=== PATIENT | male | born 1975 | race African-American/Black ===

== ENCOUNTER 2025-07-04 20:19 | Emergency (ER) | payer OTHER, SELFPAY ==
[2025-07-04 20:21] VITALS: BP 157/89; PULSE 71; RESP 20; TEMP 36.1; O2SAT 99
--- OUTSIDE RECORDS SUMMARY | 2025-07-04 20:22 | XMS_ITS | Continuity of Care Document ---
Author Organization [facility], [facility] Address [address] [address] Assessment Encounter Date Assessment Date Assessment LastModified by Organization Details LastModified Time 04/12/2025 04/12/2025 Recommends healthy nutrition, including a diet rich in fruits and vegetables, minimizing simple carbohydrates, salt, and saturated fats. Encouraged regular cardiovascular exercise such as walking at least 30 minutes daily, 5 times per week. Not available 04/12/2025 18:00:29 Plan of Treatment Reminders Order Date Submit Date Provider Last Modified By Organization Details Last Modified Time Details Appointments ESTABLISH ED PATIENT 15 2025 05:15P Ranjana Aldana MD Not available Not available Not available Lab HbA1c (hemoglob in A1c), blood 2024 [facility], [address] [place], [address], 04/19/2025 08:15:29 lipid panel, serum 2024 [facility], [address] [place], [address], 04/19/2025 08:15:28 CMP, serum or plasma 2024 [facility], [address] [place], [address], 04/19/2025 08:15:29 PSA, serum or plasma 2024 [facility], [address] [facility], [place], [address], 04/19/2025 08:15:29 microalbu min/creat inine, mass ratio, urine 2024 [facility], [address] [facility], [place], [address], 04/19/2025 08:15:28 Referral podiatris t referral 2024 CLARKE Rowell DPM, [address] [facility], [facility] [address], [place], [address], 04/12/2025 18:15:31 Procedures None recorded. Surgeries None recorded. Imaging None recorded. Medication Orders Nexlizet 180 mg-10 mg tablet [facility]24 [id number], [address], [place], [id number], 04/12/2025 18:09:22 sildenafi l 50 mg tablet 2024 [facility] Not available 04/12/2025 18:08:55 Patient TargetsNo targets recorded. Patient Instructions Encounter Date Encounter Id Patient Instructions Last Modified By Organization Details Last Modified Time 04/12/2025 [id number] heart-healthy diet: care instructions [facility] Not available 04/12/2025 18:08:55 insomnia: care instructions [facility] Not available 04/12/2025 18:08:55 advised to lose weight [email or web address] Not available 04/12/2025 18:08:55 Discussed and explained advance directives such as standard forms to the . Face to face discussion lasted for a duration of ___ minutes. 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 6 high DANIEL L RANGE BASED ON ANAND COL 2 (DCCT /NGSP ): Non-D iabet ic: < 5.7% Pre-D iabet es: 5.7 - 6.4% Diabe tessa: => 6.5% GLYCE ARTEM CONTR OL: < 7.0% Not Available [facility] [address], [place], [address], 03/29/2025 15:26:37 03/28/20 25 03/28/2025 HEMOG LOBIN A1C estimated average glucose 128 Not Available [facility] [address], [place], [address], 03/29/2025 15:26:37 03/28/20 25 03/28/2025 COMPR EHENS PATEL METAB OLIC PANEL sodium 141 mmol/ L 134-14 4 Not Available [facility] [address], [place], [address], 03/29/2025 15:26:37 03/28/20 25 03/28/2025 COMPR EHENS PATEL METAB OLIC PANEL potassium 4.2 mmol/ L 3.5-5. 2 Not Available [facility] [address] [facility], [place], [address], 03/29/2025 15:26:37 03/28/20 25 03/28/2025 COMPR EHENS PATEL METAB OLIC PANEL chloride 103 mmol/ L 98-107 Not Available [facility] [address], [place], [address], 03/29/2025 15:26:37 03/28/20 25 03/28/2025 COMPR EHENS PATEL METAB OLIC PANEL carbon dioxide (co2) 25.0 mmol/ L 18.0-2 9.0 Not Available [facility] [address], [place], [address], 03/29/2025 15:26:37 03/28/20 25 03/28/2025 COMPR EHENS PATEL METAB OLIC PANEL glucose 98 mg/dL 65-99 Daniel l Fasti n - 99 mg/dL Impai red Fasti n - 125 mg/dL Diagn ostic of Diabe tessa: => 126 mg/dL Ameri can Diabe tessa [facility] i[facility] n, 2007 Not Available [facility] [address] [facility] [address], [place], [address], 03/29/2025 15:26:37 03/28/20 25 03/28/2025 COMPR EHENS PATEL METAB OLIC PANEL urea nitrogen (BUN) 15 mg/dL 6-20 Not Available [facility] [address] [facility] [address], [place], [address], 03/29/2025 15:26:37 03/28/20 25 03/28/2025 COMPR EHENS PATEL METAB OLIC PANEL creatinine 1.05 mg/dL 0.76-1 .27 Not Available [facility] [address] [facility] [address], [place], [address], 03/29/2025 15:26:37 03/28/20 25 03/28/2025 COMPR EHENS PATEL METAB OLIC PANEL eGFR 86 mL/mi nute/ 1.73_ m2 >59 MDRD Study Equat ion: The calcu lated GFR is NOT appli cable for pedia tric (< 18 years old) and > 70 year old patie nts and patie nts that are NOT of stead y state . Not Available [facility] [address] [facility] [address], [place], [address], 03/29/2025 15:26:37 03/28/20 25 03/28/2025 COMPR EHENS PATEL METAB OLIC PANEL calcium 9.4 mg/dL 8.7-10 .2 Not Available [facility] [address] [facility] [address], [place], [address], 03/29/2025 15:26:37 03/28/20 25 03/28/2025 COMPR EHENS PATEL METAB OLIC PANEL protein, total 7.1 gm/dL 6.4-8. 3 Not Available [facility] [address], [place], [address], 03/29/2025 15:26:37 03/28/20 25 03/28/2025 COMPR EHENS PATEL METAB OLIC PANEL albumin 4.7 gm/dL 3.5-5. 2 Not Available [facility] [address] [facility] [address], [place], [address], 03/29/2025 15:26:37 03/28/20 25 03/28/2025 COMPR EHENS PATEL METAB OLIC PANEL bilirubin, total 0.40 mg/dL 0.00-1 .20 Not Available [facility] [address] [facility] [address], [place], [address], 03/29/2025 15:26:37 03/28/20 25 03/28/2025 COMPR EHENS PATEL METAB OLIC PANEL alkaline phosphatase (ALP) 54 U/L 39-117 Not Available [facility] [address] [facility] [address], [place], [address], 03/29/2025 15:26:37 03/28/20 25 03/28/2025 COMPR EHENS PATEL METAB OLIC PANEL aspartate aminotransfe rase (AST) 27 U/L 0-40 Not Available [facility] [address] [facility] [address], [place], [address], 03/29/2025 15:26:37 03/28/20 25 03/28/2025 COMPR EHENS PATEL METAB OLIC PANEL alanine aminotransfe rase (ALT) 34 U/L 0-41 Not Available [facility] [address] [facility] [address], [place], [address], 03/29/2025 15:26:37 03/28/20 25 03/28/2025 COMPR EHENS PATEL METAB OLIC PANEL A/G ratio (calculated) 2.0 ratio 1.0-2. 7 Not Available [facility] [address] [facility] [address], [place], [address], 03/29/2025 15:26:37 03/28/20 25 03/28/2025 COMPR EHENS PATEL METAB OLIC PANEL globulin (calculated) 2.4 gm/dL 1.5-3. 8 Not Available [facility] [address] [facility] [address], [place], [address], 03/29/2025 15:26:37 03/28/20 25 03/28/2025 COMPR EHENS PATEL METAB OLIC PANEL BUN/creatini ne ratio (calculated) 14.3 ratio 8.0-20 .0 Not Available [facility] [address] [facility] [address], [place], [address], 03/29/2025 15:26:37 03/28/20 25 03/28/2025 COMPR EHENS PATEL METAB OLIC PANEL serum index hemolysis NORMAL index normal Not Available [facility] [address] [facility] [address], [place], [address], 03/29/2025 15:26:37 03/28/20 25 03/28/2025 LIPID PANEL (CHOL ZACH OL TOTAL , TRIGL YCERI HAN, HDL KRISH STERO L, LDL CHOL. cholesterol, total 250 mg/dL 100-19 9 high Not Available [facility] [address] [facility] [address], [place], [address], 03/29/2025 15:26:38 03/28/20 25 03/28/2025 LIPID PANEL (CHOL ZACH OL TOTAL , TRIGL YCERI HAN, HDL KRISH STERO L, LDL CHOL. HDL cholesterol 48 mg/dL =>40 Not Available [facility] [address] [facility] [address], [place], [address], 03/29/2025 15:26:38 03/28/20 25 03/28/2025 LIPID PANEL (CHOL ZACH OL TOTAL , TRIGL YCERI HAN, HDL KRISH STERO L, LDL CHOL. LDL cholesterol (calculated) 182 mg/dL 0-99 high Not Available [facility] [address] [facility] [address], [place], [address], 03/29/2025 15:26:38 03/28/20 25 03/28/2025 LIPID PANEL (CHOL ZACH OL TOTAL , TRIGL YCERI HAN, HDL KRISH STERO L, LDL CHOL. triglyceride s 98 mg/dL 50-149 Not Available [facility] [address] [facility] [address], [place], [address], 03/29/2025 15:26:38 03/28/20 25 03/28/2025 LIPID PANEL (CHOL ZACH OL TOTAL , TRIGL YCERI HAN, HDL KRISH STERO L, LDL CHOL. chol/HDL ratio (calculated) 5.21 ratio 0.00-5 .00 high Not Available [facility] [address] [facility] [address], [place], [address], 03/29/2025 15:26:38 03/28/20 25 03/28/2025 LIPID PANEL (CHOL ZACH OL TOTAL , TRIGL YCERI HAN, HDL KRISH STERO L, LDL CHOL. VLDL cholesterol (calculated) 20 mg/dL 5-40 Not Available [facility] [address] [facility] [address], [place], [address], 03/29/2025 15:26:38 04/04/20 25 US axill jorden non breas t [facility] [address] [place] [address] Orderi ng Provid er: JEFERSON ALDANA [facility] [place] [address] [facility] [address] [place] [address] Examin ation: US AXILLA RY NON BREAST LT Exam time: 8:05 AM Indica tion: AXILLA RY LYMPHA DENOPA THY. Patien t states his left axilla ry lymph nodes have remain ed promin ent since after the covid booste r shot x 3 yrs ago off and on with some pain in area of axilla . No recent illnes s No recent shots Compar yuko: None Techni que: Graysc yandel and color Dopple r ultras ound left axilla Findin gs: In the left axilla , there is a promin ent visibl e lymph node measur ing 3.5 cm in length and has a cortex measur ing 3.7 mm thickn ess. It has a robust fatty hilum. No vascul ar increa se in the lymph node. Adjace nt smalle r lymph nodes seen. IMPRES RAQUEL: Promin ent, mild reacti ve lymph nodes. Ordere d By: JEFERSON Ratliff onical ly Signed By: Delmar Santacruz MD on 1:49 PM Interp reted By: Delmar Santacruz MD, 1:[address] [facility], [place], [address], 04/12/2025 18:00:36 06/10/20 25 US gd lymph node BX [facility] [place] [address] Orderi ng [facility]id [facility]: [facility] [place] [address] [facility] [address] [place] [address] Examin ation: Ultras ound guided lymph node biopsy . Access ion: [id number] Exam Date/T fran: 7:41 AM Reason For Exam: axilla ry lympha denopa thy Compar yuko: 2024 left axilla ry ultras ound Techni que: Transc utaneo us ultras ound evalua tion of the thyroi d was perfor med for analys is of graysc yandel gayin g charac terist ics and guidan ce for FNA. Findin gs: 3.6 x 3.2 x 0.7 cm renifo rm shaped mass with promin ent fatty hilum in the left axilla noted. Cortex measur es up to 3.8 mm in santiago l thickn ess. Subseq uent images demons trate needle placem ent within the lymph node for biopsy . A final image labele d vision clip is provid ed ====== ====== === IMPRES RAQUEL: ====== ====== ==== 1. Ultras ound perfor med for imagin g guiddana ce of thyroi d biopsy perfor med by Dr. Kearns withou t radiol ogist presen t. ====== ====== ====== ====== ====== ====== ====== = Referr ed By: CORY KEARNS Electr onical ly Signed By: Boogie beatty MD on 025 5:05 PM Interp reted By: Boogie beatty MD, 025 5:03 PM [facility] [address], [address], 06/10/2025 18:20:29 Result Notes None recorded. Problems Name Problem SNOMED Code Status Onset Date Resolution Date Notes Provider Name and Address Organization Details Recorded Time Deep venous thrombosis 833125623 Active 2018 venous doppler 02/11/19 Not Available [facility] 2 11:29:27 Deep venous thrombosis 327335937 Active 2018 Not Available [facility] 2 11:29:27 Pulmonary embolism 29905383 Active 2018 Not Available [facility] 2 11:29:27 Low back pain 864117375 Active 2022 Jeferson Aldana MD [address], [place], [address] , [facility] 3 17:13:51 Problem Notes None recorded. Procedures Surgical History Date Name Laterality Status Provider Name and Address Organization Details Recorded Time 01/14/20 Colonoscopy completed Jeferson Aldana MD [address], [place], [address], [facility] 02/13/2023 11:12:27 Orthopedic Surgery completed Jeferson Aldana MD [address], [place], [address], [facility] 08/10/2018 10:34:35 Imaging Results None recorded. Procedure Notes None recorded. Medical Equipment None Reported. Allergies No known drug allergies Medications Name Sig Start Date Stop Date Status Note LastModified by Organization Details LastModified Time acetamino phen 325 mg tablet TK 2 TS PO Q 4 H PRF MILD TO MODERATE PAIN 01/16 completed Not Available Not Available Not Available sildenafi l 50 mg tablet 1 tab a day as needed only 2024 active Not Available Not Available Not Avai lable aspirin 325 mg tablet 02/01 completed Not Available Not Available Not Available hydrocodo ne 5 mg-acetam inophen 325 mg tablet TAKE 1 TABLET BY MOUTH EVERY 6 HOURS NEEDED FOR PAIN 06/04 completed Not Available Not Available Not Available meloxicam 15 mg tablet active Not Available Not Available Not Available famotidin e 40 mg tablet TAKE 1 TABLET BY MOUTH EVERY 12 HOURS 02/01 completed Not Available Not Available Not Available metronida zole 500 mg tablet TAKE 1 TABLET BY MOUTH EVERY 12 HOURS active Not Available Not Available No t Available amlodipin e 5 mg tablet Take 1 tablet every day by oral route in the evening. 2023 active Not Available Not Available Not Avai lable ciproflox acin 500 mg tablet PLEASE SEE ATTACHED FOR DETAILED DIRECTIO NS 06/04 completed Not Available Not Available Not Available tramadol 50 mg tablet TK 1 T PO Q 6 H PRN P 01/16 completed Not Available Not Available Not Available triamtere ne 37.5 mg-hydroc hlorothia zide 25 mg capsule TAKE 1 CAPSULE BY MOUTH EVERY DAY 2024 active Not Available Not Available Not Avai lable Nitro-Bid 2 % transderm al ointment 02/01 completed Not Available Not Available Not Available oxycodone -acetamin ophen 5 mg-325 mg tablet TK 1 OR 2 TS PO Q 4 H PRN P 01/16 completed Not Available Not Available Not Available famotidin e 20 mg tablet 05/04 completed Not Available Not Available Not Available dicyclomi ne 20 mg tablet 05/04 completed Not Available Not Available Not Available baclofen 10 mg tablet 1 pill once, up to 3 times a day as needed; can cause drowsine ss 06/04 completed Not Available Not Available Not Available omeprazol e 20 mg capsule,d elayed release 1 tab BID 2024 active Not Available Not Available Not Avai lable ibuprofen 600 mg tablet 05/13 completed -- pt counsele d to avoid all NSAIDs as he is on Xarelto Not Available Not Available Not Available methylpre dnisolone 4 mg tablets in a dose pack UD 06/04 completed Not Available Not Available Not Available diazepam 5 mg tablet TK 1 T PO Q 6 H PRN ANXIETY 01/16 completed Not Available Not Available Not Available Xarelto 15 mg tablet Take 1 tablet every 12 hours by oral route. 05/13 completed --duplic ate Not Available Not Available Not Available Xarelto 20 mg tablet Take 1 tablet every day by oral route for 30 days. 02/23 completed Not Available Not Available Not Available Xarelto DVT-PE Treatment 30-Day Starter 15 mg(42)-20 mg(9) tablet pack ud 10/30 completed -- on 20 mg now Not Available Not Available Not Available Fluvirin 1580-6313 45 mcg (15 mcg x 3)/0.5 mL intramusc ular suspensio n 05/04 completed Not Available Not Available Not Available Flucelvax Quad (PF) 60 mcg (15 mcg x 4)/0.5 mL IM syringe ADM 0.5ML IM UTD 01/16 completed Not Available Not Available Not Available Nexlizet 180 mg-10 mg tablet Take 1 tablet every day by oral route for 90 days. 2024 active Not Available Not Available Not Avai lable Vitals Date Recorded Body height Heart rate Respiratory rate Body temperature Body mass index (BMI) Body weight Systolic And Diastolic Provider Name and Address Organization Details Last Updated DateTime 5 172.72 cm 80 /min 16 /min 95.7 [degF] 31.9 kg/m2 32544.4 g 131/84 mm[Hg] Jeny Gaspar [facility] 16:48:17 Social History Question Answer Notes LastModified by Organizat ion Details LastModified Time Tobacco Smoking Status Former Smoker GREG CARMONA bianca, [facility] 10/08/2016 15:00:17 What Is Your Level Of Caffeine Consumption? None Information not available 08/13/2022 How Much Tobacco Do You Chew? None Information not available 10/08/2016 What Is Your Code Status? Full Code Information not available 11/07/2020 In The 14 Days Before Symptom Onset, Have You Had Close Contact With A Laboratory-confir med COVID-19 While That Case Was Ill? No Information not available 11/07/2020 In The 14 Days Before Symptom Onset, Have You Had Close Contact With A Person Who Is Under Investigation For COVID-19 While That Person Was Ill? No Information not available 11/07/2020 Have You Been To An Area Known To Be High Risk For COVID-19? No Pt Has Been For Covid In The Past Month Information not available 11/07/2020 What Type Of Diet Are You Following? REGULAR Information not available 11/07/2020 Which Illicit Or Recreational Drugs Have You Used? None Information not available 10/08/2016 Marital Status arthur Informbulmaro n not available 08/13/2022 What Was The Date Of Your Most Recent Tobacco Screening? 04/12/2025 Information not available 04/12/2025 At What Age Did You Start Smoking Tobacco? 14 Information not available 10/08/2016 How Much Tobacco Do You Smoke? 2 PPD X 2 Months Information not available 10/08/2016 How Many Years Have You Smoked Tobacco? 0 Information not available 11/07/2020 Sex: Unknown Functional Status Question Answer Note LastModified by Organizat ion Details LastModified Time What is your level of alcohol consumption? 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 Heavy Information not available 11/07/2020 Mental Status None recorded. Family History Relationship Description Onset Age of this Age Resolved Age Notes LastModified by Organization Details LastModified Time Father Lupus erythematosu s -- pt is not sure Not available 10/08/2016 15:46:49 Maternal Uncle Malignant neoplasm of prostate 67 70 -- dx'd around his late 60s Not available 09/05/2024 19:32:47 Notes:Patient denies any FH for diabetes, Heart disease, or cancers in the family Medical History No medical history recorded. Immunizations Vaccine Type Date Status Note Provider Nam e and Address Organization Details Recorded Time Tdap 9 completed Ratna valenzuela, [facility] 02/21/2019 13:43:27 Influenza, split virus, quadrivalent, preservative 9 completed Zachery valenzuela, [facility] 11/07/2020 17:00:01 Influenza, split virus, quadrivalent, preservative 7 completed Zachery valenzuela, [facility] 11/07/2020 17:00:01 Hep A, adult 6 completed Zachery valenzuela, [facility] 11/07/2020 17:00:01 Hep B, unspecified formulation 6 completed Zachery Valiente [facility] 11/07/2020 17:00:01 Past Encounters Encounter ID Performer Location Encounter Start Date Encounter Closed Date Diagnosis/Indication Diagnosis SNOMED-CT Code Diagnosis ICD10 Code Diagnosis IMO Codes Diagnosis Note [id number] Jeferson Aldana MD [facility], [facility] [address] ,[address] [address] 03/13/2025 18:17:18 03/13/2025 19:43:15 Essential hypertension 19471280 I10 -- will need to keep BP controlled ; need to restrict daily Sodium intake to between 1-2 grams of Sodium intake per 24 hours-- examples of salty foods include: smoked salmon, canned green beans, chicken noodle soups, TV dinners, salted nuts, chips, kraus, Pepperoni, Parmesan cheese, Ramen noodles, Sauerkraut , dill pickles, canned tomato sauce, etc.-- EKG done 09/05/24 Hyperlipidemia 59004564 E78.5 Hyperlipid emia; pt will need to:-- avoid Cheese (cheese on burgers, Pizza, lasagna, Dada, Parmesan), -- you will also need to limit egg yolks to 2 yolks a week (but as many egg whites he wants).-- Avoid Kraus,-- trim off fatty rubbery meat before consuming, -- avoid butter & Margarine, -- No whole milk or 2% milk (but 1%, 1/2% & fat free milk is fine). Hyperglycemia 99625379 R 73.9 (glucose of 105 on 05/11/24) Gastroesop hageal reflux disease without esophagitis 667834527 K21.9 -- asymptomat ic as long as he takes Omeprazole Low back pain 267295113 M54.51 (R>>L lower flank) -- per pt on 04/18/24, he underwent procedure by Spine surgeon Dr Dominic Cruz (Fax # [phone])-- had cage placed on L5-S1 via anterior approach done 08/20/22 and doing well without pain since surgery History of deep vein thrombosis 084987296 Z86.718 (twice) once after meniscus surgery on 08/17/18, & second time after ACL reconstruc tion on 01/26/19 w/ LLE DVT going to his Rt lung) -- both times after left knee surgery Chronic insomnia 6991214 04 F51.04 Recommende d dose for Melatonin is 3 mg. Higher doses have been associated w/ headaches and mood swings. Here are some recommenda tions: 1. Make sure your bedroom is quiet, dark, relaxing, and at a comfortabl e temperatur e.2. No electronic devices, such as TVs, computers, and smart phones 4 hours prior to bedtime. However, if this is not possible then use eye glasses with blue light filter (when using the above electronic devices).3 . Avoid large meals, caffeine, and alcohol before bedtime. Alcohol helps individual fall asleep but sleep will be fragmented & prevents prolonged deep sleep.4. 30-40 minutes of morning Exercise has been shown to help regulate brain wave in the evening. However, if unable to exercise in AM (due to schedule), must not exercise after 4 pm.5. Bed is primarily for sleeping. If unable to sleep --> will need to get out of bed and sit in a dark quiet corner for 20 to 30 min (without electronic devices); then re-attempt sleeping in bed again. Primary er ectile dysfunction 904737857 N52.9 Many patients found that Viagra can help a lot. Its generic version is called Sildenafil . Viagra (Sildenafi l) most common side effects are transient headaches and transient nasal congestion . Almost everyone on it experience the side effects periodical ly. For optimal efficacy, the best time to take Viagra is 2 hr prior to intimacy. Here are some additional warnings on Viagra (Sildenafi l):--- Do not take sildenafil if another medical provider issued you a nitrate drug (like nitroglyce rin) for chest pain or heart problems. Other examples of nitroglyce rin include Nitrostat, Nitrolingu al, Nitro-Dur, Nitro-Bid, and others), isosorbide dinitrate (Dilatrate -SR, Isordil, Sorbitrate ), and isosorbide mononitrat e (Imdur, ISMO, Monoket). Nitrates are also found in some recreation al drugs such as amyl nitrate or nitrite (poppers ). Taking sildenafil with a nitrate medicine can cause a sudden unsafe and serious decrease in blood pressure. -- During sexual activity, if you become dizzy or nauseated, or have pain, numbness, or tingling in your chest, arms, neck, or jaw, stop and call your doctor right away. You could be having a serious side effect of sildenafil . -- Do not take sildenafil more than once a day. Allow 24 hours to pass between doses. Do not take sildenafil while also taking Revatio, unless your doctor tells you to. -- Contact your doctor or seek emergency medical attention if your erection is painful or lasts longer than 4 hours. A prolonged erection (priapism) can damage the penis. -- sildenafil can decrease blood flow to the optic nerve of the eye, causing sudden vision loss. This has occurred in a small number of people taking sildenafil , most of whom also had heart disease, diabetes, high blood pressure, high cholestero l, or certain pre-existi ng eye problems, and in those who smoke or are over 50 years old. It is not clear whether sildenafil is the actual cause of vision loss. -- Stop using sildenafil and get emergency medical help if you have sudden vision loss. Hepatitis C screening 41 3424371 Z11.59 -- tested negative for Hepatitis C on 06/10/22 HIV screening 802941851 Z11.4 -- tested negative for HIV on 05/11/24 Active or passive immunization 127574282 Z23 -- Patient does not want Flu shot Screening for malignant neoplasm of colon 125357764 Z12.11 -- gastroente rologist Dr Svetlana Degroot recommends repeating colonoscop y 5 years from 01/13/23 Obesity ca used by energy imbalance 044563747 E66.811 E66.09 Z68.32 [id number] -- advised weight loss; pt lost 4 # since his last visit-- pt's BMI today is 32.4 (ideal is between 20-25) Axillary lymphadenopathy 178038455 R59.0 981892 (left side since covid vaccine 2020) Screening for malignant neoplasm of prostate 834834771 Z12.5 [id number] [id number] Jeferson Aldana MD [place] [employer], [place] [address] [facility] ,[address] [address] 04/12/2025 16:40:40 04/12/2025 18:10:14 Axillary lymphadenopathy 521705351 R59.0 200909 (left side since covid vaccine 2020) -- Axillary LN evident on u/s on 04/04/25-- referred pt to [facility] for further evaluation . Essential hypertension 61958914 I10 -- will need to keep BP controlled ; need to restrict daily Sodium intake to between 1-2 grams of Sodium intake per 24 hours-- examples of salty foods include: smoked salmon, canned green beans, chicken noodle soups, TV dinners, salted nuts, chips, kraus, Pepperoni, Parmesan cheese, Ramen noodles, Sauerkraut , dill pickles, canned tomato sauce, etc.-- EKG done 09/05/24 Hyperlipidemia 74506346 E78.5 Hyperlipid emia; pt will need to:-- avoid Cheese (cheese on burgers, Pizza, lasagna, Dada, Parmesan), -- you will also need to limit egg yolks to 2 yolks a week (but as many egg whites he wants).-- Avoid Kraus,-- trim off fatty rubbery meat before consuming, -- avoid butter & Margarine, -- No whole milk or 2% milk (but 1%, 1/2% & fat free milk is fine).-- pt does not want to be on any statin med; Gastroesop hageal reflux disease without esophagitis 435562859 K21.9 -- asymptomat ic even though he is no longer on Omeprazole Low back pain 938282488 M54.51 (R>>L lower flank) -- per pt on 04/18/24, he underwent procedure by Spine surgeon Dr Dominic Cruz [phone] (Fax # [phone])-- had cage placed on L5-S1 via anterior approach done 08/20/22 and doing well without pain since surgery History of deep vein thrombosis 925383825 Z86.718 (twice) once after meniscus surgery on 08/17/18, & second time after ACL reconstruc tion on 01/26/19 w/ LLE DVT going to his Rt lung) -- both times after left knee surgery Chronic insomnia 6342527 04 F51.04 Recommende d dose for Melatonin is 3 mg. Higher doses have been associated w/ headaches and mood swings. Here are some recommenda tions: 1. Make sure your bedroom is quiet, dark, relaxing, and at a comfortabl e temperatur e.2. No electronic devices, such as TVs, computers, and smart phones 4 hours prior to bedtime. However, if this is not possible then use eye glasses with blue light filter (when using the above electronic devices).3 . Avoid large meals, caffeine, and alcohol before bedtime. Alcohol helps individual fall asleep but sleep will be fragmented & prevents prolonged deep sleep.4. 30-40 minutes of morning Exercise has been shown to help regulate brain wave in the evening. However, if unable to exercise in AM (due to schedule), must not exercise after 4 pm.5. Bed is primarily for sleeping. If unable to sleep --> will need to get out of bed and sit in a dark quiet corner for 20 to 30 min (without electronic devices); then re-attempt sleeping in bed again. Primary er ectile dysfunction 696874996 N52.9 Many patients found that Viagra can help a lot. Its generic version is called Sildenafil . Viagra (Sildenafi l) most common side effects are transient headaches and transient nasal congestion . Almost everyone on it experience the side effects periodical ly. For optimal efficacy, the best time to take Viagra is 2 hr prior to intimacy. Here are some additional warnings on Viagra (Sildenafi l):--- Do not take sildenafil if another medical provider issued you a nitrate drug (like nitroglyce rin) for chest pain or heart problems. Other examples of nitroglyce rin include Nitrostat, Nitrolingu al, Nitro-Dur, Nitro-Bid, and others), isosorbide dinitrate (Dilatrate -SR, Isordil, Sorbitrate ), and isosorbide mononitrat e (Imdur, ISMO, Monoket). Nitrates are also found in some recreation al drugs such as amyl nitrate or nitrite (poppers ). Taking sildenafil with a nitrate medicine can cause a sudden unsafe and serious decrease in blood pressure. -- During sexual activity, if you become dizzy or nauseated, or have pain, numbness, or tingling in your chest, arms, neck, or jaw, stop and call your doctor right away. You could be having a serious side effect of sildenafil . -- Do not take sildenafil more than once a day. Allow 24 hours to pass between doses. Do not take sildenafil while also taking Revatio, unless your doctor tells you to. -- Contact your doctor or seek emergency medical attention if your erection is painful or lasts longer than 4 hours. A prolonged erection (priapism) can damage the penis. -- sildenafil can decrease blood flow to the optic nerve of the eye, causing sudden vision loss. This has occurred in a small number of people taking sildenafil , most of whom also had heart disease, diabetes, high blood pressure, high cholestero l, or certain pre-existi ng eye problems, and in those who smoke or are over 50 years old. It is not clear whether sildenafil is the actual cause of vision loss. -- Stop using sildenafil and get emergency medical help if you have sudden vision loss. Obesity ca used by energy imbalance 875912359 E66.811 E66.09 Z68.31 38888334 -- advised weight loss; pt lost 3 # since his last visit-- pt's BMI today is 3.9 (ideal is between 20-25) Hepatitis C screening 41 9866632 Z11.59 -- tested negative for Hepatitis C on 06/10/22 HIV screening 481236652 Z11.4 -- tested negative for HIV on 05/11/24 Active or passive immunization 467462398 Z23 -- Patient does not want Flu shot Screening for malignant neoplasm of colon 170380871 Z12.11 -- gastroente rologist Dr Svetlana Degroot recommends repeating colonoscop y 5 years from 01/13/23 Screening for malignant neoplasm of prostate 550903167 Z12.5 538611 -- check lab within 3 weeks from 04/12/25 Well adult 054486463 Z00 .00 48011869 Pain in right foot 26666 18136 71620 M79.671 428979 (h/o plantar fascitis and right heel spur) Impaired g lucose tolerance 7182179 R73.02 09460 -- A1c f 6.1 (03/28/25) Health Concerns Section Related Observation LastModified by Organization Detai ls LastModified Time None Recorded Concern Status LastModified by Organization Details LastModified Time None Recorded Payers Encounter Date Sequence Insurance Name Policy Number Policy Fountain Covered Member ID Fountain Member ID Guarantor Name 04/12/2025 1 [facility] [id number] Aman Brooke [id number] Aman Brooke Notes Date Note Type Note Provider Name and Address Organization Details Recorded Time 04/12/2025 text/html Pt comes in for stress and foot pain requesting [place] paperwork. Pt is also due for his annual PE and f/u of HLD, pre-DM. Pt feels well and has no c/o. Pt has no new sx and no increasing sx. Patient denies any jaw or neck discomfort, left arm pain/left arm discomfort, chest discomfort/pain, diaphoresis, breathing symptoms/chest tightness, indigestion sx, n/v, any angina equivalent symptoms, etc. Jeferson Aldana MD [address] [facility] [address], [place], [address], [facility] 04/12/2025 18:10:35
--- OUTSIDE RECORDS SUMMARY | 2025-07-04 20:22 | XMS_ITS | Encounter Summary ---
Author Organization [facility] Address [address] [place] [address] Phone Care Team Providers Care Braker Passenger Train Name Role Phone Mk Esposito MD Primary Care Provider [phone] Encounter Details Date Type Department Care Team (Late st Contact Info) Description 11/12/2020 Telephone [facility] [address] [place] [address] Gary Quispe, [address] [place] [address] Social History Tobacco Use Types Packs/Day Years Used Date Smoking Tobacco: Never Smokeless Tobacco: Never Alcohol Use Standard Drinks/Week Comments Yes 2 (1 standard drink = 0.6 oz pur e alcohol) every 3-4 days AUDIT-C Answer Date Recorded Frequency of Alcohol Consumption 2-3 times a wee jake 03/09/2019 Average Number of Drinks 1 or 2 019 Frequency of Binge Drinking Never 10/2018 PHQ-2 Answer Date Recorded Total Score - Questions 1-9 0 11/03 Sexually Active Control Partners Comments Yes Female Sex and Gender Information Value Date Recorded Sex Assigned at Not on file Legal Sex Male 4:24 PM CDT Gender Identity Not on file Sexual Orientation Not on file documented as of this encounter Miscellaneous Notes * Telephone Encounter - CristalOctober - 11/13/2020 4:17 PM CDT I've changed him from being on your schedule to back to [facility]. * Telephone Encounter - Gary Quispe DO - 11/13/2020 7:12 [address] CDT This is Dr. Caceres patient. Get him back to see him on Thursday or another time that works. * Telephone Encounter - Cristal October - 11/12/2020 4:03 PM CDT Pt forgot about his one year f/u. He is rescheduled for this Thursday. documented in this encounter Plan of Treatment Not on file documented as of this encounter Visit Diagnoses Not on filedocumented in this encounter Additional Health Concerns Assessment Noted Time PHQ-9 Depression Total Score: 0 11/14/19 20 1:32 PM CDT documented as of this encounter Care Teams Braker Passenger Train Relationship Specialty Start Date End Date Mk Esposito MD PCP - General Internal Medicine 02/16/19 documented as of this encounter
--- OUTSIDE RECORDS SUMMARY | 2025-07-04 20:22 | XMS_ITS | Encounter Summary ---
Author Organization [facility] Address Counts include [address] beds at the [facility] [place] [address] Care Team Providers Care Guide Plant Name Role Phone Mk Esposito MD Primary Care Provider [phone] Encounter Details Date Type Department Care Team (Late st Contact Info) Description 12/11/2018 Abstract [facility] CONVERSION [address] [place] [address] , Generic ConversionMD Social History Tobacco Use Types Packs/Day Years Used Date Smoking Tobacco: Never Assessed Sex and Gender Information Value Date Recorded Sex Assigned at Male 03/27/2025 7:57 AM CDT Legal Sex Male 7:00 PM CDT Gender Identity Not on file Sexual Orientation Not on file documented as of this encounter Plan of Treatment Not on file documented as of this encounter Visit Diagnoses Not on filedocumented in this encounter Care Teams Guide Plant Relationship Specialty Start Date End Date Mk Esposito MD [address] [place] [address] PCP - General INTERNAL MEDICINE 05/13/18 documented as of this encounter
--- OUTSIDE RECORDS SUMMARY | 2025-07-04 20:22 | XMS_ITS | Clinical Summary ---
Author Organization [facility] at the Medical Office Building Address [address] [place] [address] Care Team Providers Care Velvet Weaver Name Role Phone Mk Esposito MD Primary Care Provider [phone] Allergies No known active allergies Medications aspirin 325 mg tablet TK 1 T PO D 0 9 Active BOOSTRIX TDAP 2.5-8-5 Lf-mcg-Lf/0.5mL vaccine U UTD Q 10 YEARS 0 9 Active famotidine (PEPCID) 40 mg tablet TK 1 T PO Q 12 H 5 9 Active HYDROcodone-acetam inophen (NORCO) 5-325 mg per tablet TK 1 T PO Q 4 H PRN P 0 9 Active NITRO-BID 2 % ointment 9 Active omeprazole (PriLOSEC) 20 mg capsule TK ONE C PO QD 2 9 Active rivaroxaban (XARELTO) 10 mg tablet 10 mg daily Active ondansetron ODT (ZOFRAN-ODT) 4 mg disintegrating tablet Take 1 tablet (4 mg total) by mouth every 8 (eight) hours as needed for nausea or vomiting 20 tablet 5 Active cyclobenzaprine (FLEXERIL) 10 mg tablet Take 1 tablet (10 mg total) by mouth 2 (two) times a day as needed for muscle spasms 20 tablet 5 Active gabapentin (NEURONTIN) 300 mg capsule Take 1 capsule (300 mg total) by mouth 2 (two) times a day as needed (back pain) for up to 14 days For post-herpetic neuralgia: Take 1 tablet on day 1, Then take 2 tablets on day 2, Then take 3 tablets on day 3 and every day after that as instructed by your doctor. 14 capsule 026 Active Active Problems Problem Noted Date Diagnosed Date Other meniscus derangements, anterior horn of lateral meniscus, left knee 05/19/2018 Acute deep vein thrombosis ( DVT) of distal vein of left lower extremity 05/06/2018 Internal derangement of left knee 05/06/2018 Encounters Date Type Department Care Team Description 06/25/2025 3:59 AM RN ADVICE - 06/25/2025 5:44 AM RN ADVICE Emergency [facility] [address] [place] [address] Marquita Guidry MD Acute right-sided low back pain without sciatica (Primary Dx) Discharge Disposition: Discharge to home or self care from Last 3 Months Immunizations Immunization Administration Dates Next Due Influenza, Quadrivalent, Spl it, Preservative Free, Intramuscular 03/26/2018 Tdap 08/11/2018 Surgical History Surgery Date Site/Laterality Comments KNEE ARTHROSCOPY US GUIDED BIOPSY LYMPH NODE SUPERFICIAL LEFT 06/09/2025 N/A Medical History Medical History Date Comments Deep vein thrombosis (HCC) Family History Medical History Relation Name Comments Hypertension Mother Relation Name Status Comments Father Alive Mother Alive Social History Tobacco Use Types Packs/Day Years Used Date Smoking Tobacco: Never Smokeless Tobacco: Never Alcohol Use Standard Drinks/Week Comments Yes 0 (1 standard drink = 0.6 oz pur e alcohol) AUDIT-C Answer Date Recorded Frequency of Alcohol Consumption Monthly or less 10/06/2018 Average Number of Drinks Not on file 019 Frequency of Binge Drinking Not on file 09/2018 Personal Safety Answer Date Recorded Have you ever been in or are you currently in a harmful physical or emotional relationship or is someone making you feel afraid or unsafe? Denies 06/25/2025 Sex and Gender Information Value Date Recorded Sex Assigned at Not on file Legal Sex Male 3:59 AM RN ADVICE Gender Identity Not on file Sexual Orientation Not on file Last Filed Vital Signs Vital Sign Reading Time Taken Comments Blood Pressure 117/87 06/25/2025 5:30 AM RN ADVICE Pulse 58 06/25/2025 5:30 AM RN ADVICE Temperature 37.1 C (98.8 F) 06/25/2025 3:57 AM RN ADVICE Respiratory Rate 16 06/25/2025 5:30 AM RN ADVICE Oxygen Saturation 97% 06/25/2025 5:30 AM RN ADVICE Inhaled Oxygen Concentration - - Weight 92.7 kg (204 lb 5.9 oz) 06/25/2025 3:57 A M RN ADVICE Height 172.7 cm (5' 8) 06/25/2025 3:57 AM RN ADVICE Body Mass Index 31.07 06/25/2025 3:57 AM RN ADVICE Plan of Treatment Health Maintenance Due Date Last Done Comments Colon Cancer Screening-Colonoscopy 1974 Depression Screening 1974 Hepatitis C Screening 1974 Prostate Cancer Screening-PSA 1974 Regular Well Visit/Exam 18-64 1992 Zoster Vaccine (1 of 2) 2024 Covid-19 Vaccine ( season) 2025 08/06/2021, 10/31/2020, 10/11/2020 Influenza Vaccine (#1) 2025 9, 04/27/2019, 03/26/2018, Additional history exists DTaP/Tdap/Td Vaccine (8 - Td or Tdap) 08/11/2028 08/11/2018, 03/10/1986, 03/22/1981, Additional history exists Hepatitis B Screening Completed 04/01/2016 , 12/25/2015, 09/10/2015, Additional history exists Pneumococcal vaccine <65 Aged Out No longer eligible based on patient's age to complete this topic Procedures Procedure Name Priority Date/Time Associated Diagnosis Comments CT ABDOMEN PELVIS WO CONTRAST ED 06/25/2025 4:58 AM RN ADVICE URINALYSIS, MICROSCOPIC ONLY STAT 06/25/2025 4:38 AM RN ADVICE EGFR STAT 06/25/2025 4:38 AM RN ADVICE DIFFERENTIAL AUTO STAT 06/25/2025 4:3 8 AM RN ADVICE BASIC METABOLIC PANEL STAT 06/25/2025 4:38 AM RN ADVICE CBC WITH AUTO DIFFERENTIAL STAT 06/25/2025 4:38 AM RN ADVICE URINALYSIS AND REFLEX TO MICROSCOPIC AND CULTURE STAT 06/25/2025 4:38 AM RN ADVICE from Last 3 Months Results * CT Abdomen Pelvis WO Contrast (06/25/2025 4:58 AM RN ADVICE) Anatomical Region Laterality Modality Body N/A Computed Tomogra phy 06/25/2025 5:11 AM RN ADVICE Impressions 06/25/2025 5:11 AM RN ADVICE No acute abdominopelvic finding, evidence of urinary stone or obstruction. Electronically signed by: Derrick Lynch M.D. Narrative 06/25/2025 5:11 AM RN ADVICE EXAMINATION: CT ABDOMEN PELVIS WO CONTRAST INDICATION: Male, 49 years old, Abdominal/flank pain, stone suspected COMPARISON(S): None. TECHNIQUE: CT acquisition of the abdomen and pelvis without contrast. Coronal and sagittal reformatted images provided. This exam was performed according to departmental dose-optimization program which includes automated exposure control, adjustment of the mA and/or kV according to patient size, and/or use of iterative reconstruction technique. FINDINGS: SUPPORT DEVICES: None. LOWER CHEST: Mild basilar scarring/atelectasis. Imaged heart is unremarkable. ABDOMEN AND PELVIS: Lack of intravenous contrast limits evaluation of the abdominal and pelvic viscera and vascular structures. Liver: Borderline hypoattenuation. Gallbladder and bile ducts: Unremarkable. Pancreas: Unremarkable. Spleen: Unremarkable. Adrenal glands: Unremarkable. Kidneys and ureters: No evidence of stone or obstruction. Bladder: Nondistended without evident abnormality. Reproductive organs: Unremarkable as visualized. GI tract: Normal caliber without wall thickening. Normal appendix. Vessels: Mild atherosclerosis. Lymph nodes: No obvious adenopathy. Peritoneum: No evidence of ascites, fluid collection, or free air. Abdominal wall: Ventral postsurgical change. MUSCULOSKELETAL: No acute osseous abnormality. L5-S1 postsurgical change without evidence of hardware complication. Procedure Note Derrick Lynch MD - 06/25/2025 EXAMINATION: CT ABDOMEN PELVIS WO CONTRAST INDICATION: Male, 49 years old, Abdominal/flank pain, stone suspected COMPARISON(S): None. TECHNIQUE: CT acquisition of the abdomen and pelvis without contrast. Coronal and sagittal reformatted images provided. This exam was performed according to departmental dose-optimization program which includes automated exposure control, adjustment of the mA and/or kV according to patient size, and/or use of iterative reconstruction technique. FINDINGS: SUPPORT DEVICES: None. LOWER CHEST: Mild basilar scarring/atelectasis. Imaged heart is unremarkable. ABDOMEN AND PELVIS: Lack of intravenous contrast limits evaluation of the abdominal and pelvic viscera and vascular structures. Liver: Borderline hypoattenuation. Gallbladder and bile ducts: Unremarkable. Pancreas: Unremarkable. Spleen: Unremarkable. Adrenal glands: Unremarkable. Kidneys and ureters: No evidence of stone or obstruction. Bladder: Nondistended without evident abnormality. Reproductive organs: Unremarkable as visualized. GI tract: Normal caliber without wall thickening. Normal appendix. Vessels: Mild atherosclerosis. Lymph nodes: No obvious adenopathy. Peritoneum: No evidence of ascites, fluid collection, or free air. Abdominal wall: Ventral postsurgical change. MUSCULOSKELETAL: No acute osseous abnormality. L5-S1 postsurgical change without evidence of hardware complication. IMPRESSION: No acute abdominopelvic finding, evidence of urinary stone or obstruction. Electronically signed by: Derrick Lynch M.D. Marquita Guidry MD IMG CT PROCEDURES Final R esult * eGFR (06/25/2025 4:38 AM RN ADVICE) eGFR 90 >=60 mL/min/1. 73 m2 Comment: Interpretive Data Reference Interval Normal >/= 90 mL/min/1.73m2 Mildly decreased* 60 - 89 mL/min/1.73m2 Mildly to moderately decreased 45 - 59 mL/min/1.73m2 Moderately to severely decreased 30 - 44 mL/min/1.73m2 Severely decreased 15 - 29 mL/min/1.73m2 Kidney Failure < 15 mL/min/1.73m2 *Relative to young adult level Estimated glomerular filtration rate is determined by the 2020 CKD-EPI equation recommended by the National Kidney Foundation (A Unifying Approach to GFR Estimation: Recommendations of the NKF-ASK Task Force on Reassessing the Inclusion of Race in Diagnosing Kidney Disease, JASN 2021). The CKD-EPI equation should not be used for patients with unstable renal function and has not been validated in children and those over 70. Current interpretive data was last reviewed 2021. Testing performed by: [address] [address] Blood 06/25/2025 4:38 AM RN ADVICE 06/25/2025 4:50 AM RN ADVICE us Marquita Guidry MD LAB BLOOD ORDERABLES Kenia dorsey Result [facility] [address] [facility] [place] [address] * Differential, auto (06/25/2025 4:38 AM RN ADVICE) Neutrophil abs 1.75 1.50 - 6.50 K/cumm Comment:Testing performed by : [address] [address] Imm gran abs 0.01 0.00 - 0.10 K/cumm REE Comment:Testing performed by : [address] [address] Lymphocyte abs 2.43 0.80 - 3.30 K/cumm REE Comment:Testing performed by : [address] [address] Monocyte abs 0.43 0.20 - 0.80 K/cumm REE Comment:Testing performed by : [address] [address] Eosinophil abs 0.08 0.00 - 0.50 K/cumm REE Comment:Testing performed by : [address] [address] Basophil abs 0.01 0.00 - 0.10 K/cumm REE Comment:Testing performed by : [address] [address] Neutrophil pct 37.2 % REE Comment: Interpretive Data Percent cell count reference ranges are not reported, since discordance with absolute values may lead to misinterpretation of CBC data. Current Interpretive Data was last revised on 2017. Testing performed by: [address] [address] Imm gran pct 0.2 % [facility] Comment: Interpretive Data Percent cell count reference ranges are not reported, since discordance with absolute values may lead to misinterpretation of CBC data. Current Interpretive Data was last revised on 2017. Testing performed by: [address] [address] Lymphocyte pct 51.6 % [facility] Comment: Interpretive Data Percent cell count reference ranges are not reported, since discordance with absolute values may lead to misinterpretation of CBC data. Current Interpretive Data was last revised on 2017. Testing performed by: [address] [address] Monocyte pct 9.1 % [facility] Comment: Interpretive Data Percent cell count reference ranges are not reported, since discordance with absolute values may lead to misinterpretation of CBC data. Current Interpretive Data was last revised on 2017. Testing performed by: [address] [address] Eosinophil pct 1.7 % [facility] Comment: Interpretive Data Percent cell count reference ranges are not reported, since discordance with absolute values may lead to misinterpretation of CBC data. Current Interpretive Data was last revised on 2017. Testing performed by: [address] [address] Basophil pct 0.2 % [facility] Comment: Interpretive Data Percent cell count reference ranges are not reported, since discordance with absolute values may lead to misinterpretation of CBC data. Current Interpretive Data was last revised on 2017. Testing performed by: [address] [address] Blood 06/25/2025 4:38 AM RN ADVICE 06/25/2025 4:50 AM RN ADVICE us Marquita Guidry MD LAB BLOOD ORDERABLES Kenia dorsey Result [facility] [address] [facility] [place] [address] * (ABNORMAL) Urinalysis reflex to microscopic and culture Urine (06/25/2025 4:38 AM RN ADVICE) Color, ur Yellow Yellow Comment:Testing performed by : [address] [address] Clarity, ur Clear Clear REE Comment:Testing performed by : [address] [address] Specific gravity, ur 1.025 1.003 - 1.030 REE Comment:Testing performed by : [address] [address] pH, urine 5.5 REE Comment: Interpretive Data U rine pH is affected by diet, medications, systemic acid-base disturbances, and renal tubular function. pH may affect urinary stone formation. For example, urine pH below 6.0 may help reduce the tendency for calcium phosphate stones and pH greater than 6.0 may reduce the tendency for uric acid stone formation. Source: [facility] Current Interpretive Data was last revised on 2017 Testing performed by: [address] [address] Protein, ur ql Trace(A) Negative REE Comment:Testing performed by : [address] [address] Glucose, ur ql Negative Negative REE Comment:Testing performed by : [address] [address] Ketones, ur Negative Negative REE Comment:Testing performed by : [address] [address] Bilirubin, ur Negative Negative REE Comment:Testing performed by : [address] [address] Blood, ur Negative Negative REE Comment:Testing performed by : [address] [address] Urobilinogen, ur <2.0 <2.0 mg/dL REE Comment:Testing performed by : [address] [address] Nitrite, ur Negative Negative REE Comment:Testing performed by : [address] [place]., [address] Leukocyte esterase, ur Negative Negative REE Comment:Testing performed by : [address] [address] UA reflex comment Reflex to microscopic UA will be performed. REE Comment:Testing performed by : [address] [address] Urine 06/25/2025 4:38 AM RN ADVICE 06/25/2025 4:50 AM RN ADVICE us Marquita Guidry MD LAB MICROBIOLOGY - GENERA L ORDERABLES Final Result [facility] [address] [facility] Department of Laboratories [place], [place] [id number] * (ABNORMAL) CBC with auto differential (06/25/2025 4:38 AM RN ADVICE) WBC 4.71 3.80 - 9.90 K/cumm Comment:Testing performed by : [address] [address] Hgb 13.5 13.0 - 17.5 g/dL REE Comment:Testing performed by : [address] [address] Hct 40.4 38.9 - 50.3 % REE GELLER Comment:Testing performed by : [address] [address] Plt 203 150 - 400 K/cumm REE Comment:Testing performed by : [address] [address] MPV 8.9(L) 9.1 - 12.3 fL REE Comment:Testing performed by : [address] [address] RBC 4.42 4.30 - 5.80 M/cumm REE GELLER Comment:Testing performed by : [address] [address] MCV 91.4 81.3 - 96.4 fL REE GELLER Comment:Testing performed by : [address] [address] MCH 30.5 27.1 - 33.3 pg REE GELLER Comment:Testing performed by : [address] [address] MCHC 33.4 32.3 - 35.7 g/dL REE GELLER Comment:Testing performed by : [address] [address] RDW CV 13.1 11.1 - 14.9 % REE GELLER Comment:Testing performed by : [address] [address] RDW SD 43.6 35.7 - 48.1 fL REE GELLER Comment:Testing performed by : [address] [address] NRBC abs 0.00 0.00 - 0.01 K/cumm REE GELLER Comment:Testing performed by : [address] [address] Blood 06/25/2025 4:38 AM RN ADVICE 06/25/2025 4:50 AM RN ADVICE us Marquita Guidry MD LAB BLOOD ORDERABLES Kenia l Result [facility] [address] [facility] Department [place] [address] * (ABNORMAL) Urinalysis, microscopic only (06/25/2025 4:38 AM RN ADVICE) WBC, ur 0-5 0 - 5 /HPF Comment:Testing performed by : [address] [address] RBC, ur 0-2 0 - 2 /HPF REE GELLER Comment:Testing performed by : [address] [address] Epithelial cells, squamous, ur 1-5 0 - 5 /HPF REE GELLER Comment:Testing performed by : [address] [address] Bacteria, ur Trace(A) REE GELLER Comment:Testing performed by : [address] [address] Mucous, ur Present(A) REE GELLER Comment:Testing performed by : [address] [address] Hyaline casts, ur 1-5 0 - 10 /LPF REE Comment:Testing performed by : [address] [address] Culture Reflex Comment Reflex conditions for urine culture (WBC >10) not met. REE Comment:Testing performed by : [address] [address] Urine 06/25/2025 4:38 AM RN ADVICE 06/25/2025 4:50 AM RN ADVICE us Marquita Guidry MD LAB URINE ORDERABLES Kenia dorsey Result [facility] [address] [facility] [place] [address] * Basic metabolic panel (06/25/2025 4:38 AM RN ADVICE) Sodium 140 135 - 145 mmol/L Comment:Testing performed by : [address] [address] Potassium, pl 3.7 3.3 - 4.9 mmol/L REE Comment:Testing performed by : [address] [address] Chloride 104 97 - 110 mmol/L REE Comment:Testing performed by : [address] [address] CO2 23 22 - 32 mmol/L REE Comment:Testing performed by : [address] [address] Anion gap 13 2 - 15 mmol/L REE Comment:Testing performed by : [address] [address] BUN 15 6 - 25 mg/dL REE Comment:Testing performed by : [address] [address] Creatinine 1.02 0.80 - 1.30 mg/dL REE Comment:Testing performed by : [address] [address] Glucose 90 70 - 199 mg/dL REE GELLER Comment: Interpretive Data Fasting glucose >/= 126 mg/dl is diagnostic for diabetes. Fasting is defined as no caloric intake for at least 8 hours. Fasting glucose between 100 mg/dl to 125 mg/dl is diagnostic of prediabetes. In a patient with classic symptoms of hyperglycemia or hyperglycemic crisis, a random glucose >/= 200 mg/dl is diagnostic for diabetes. In the absence of unequivocal hyperglycemia, results should be confirmed by repeat testing. The classification and Diagnosis of Diabetes Diabetes Care 202; 46: S19-S40. Current interpretive data was last revised 2022. Testing performed by: [address] [address] Calcium 9.4 8.5 - 10.3 mg/dL REE GELLER Comment:Testing performed by : [address] [address] Blood 06/25/2025 4:38 AM RN ADVICE 06/25/2025 4:50 AM RN ADVICE us Marquita Guidry MD LAB BLOOD ORDERABLES Kenia dorsey Result [facility] [address] [facility] [place] [address] from Last 3 Months Insurance [facility] CHOICE PLUS [facility] H[facility]/PPO Address: [address] [address] [place] [address] Care Teams Velvet Weaver Relationship Specialty Start Date End Date Mk Esposito MD [address] [facility] [address] [place] [address] PCP - General 08/28/18
--- OUTSIDE RECORDS SUMMARY | 2025-07-04 20:22 | XMS_ITS | Encounter Summary ---
Author Organization [facility] Facility Care Team Providers Care Public Welfare Director Name Role Phone Mk Esposito MD Primary Care Provider [phone] Encounter Details Date Type Department Care Team (Latest Contact Info) Description 08/17/2018 Orders Only [facility] CLINCONV ProviderSam MD [address] [place] [id number] Social History Tobacco Use Types Packs/Day Years Used Date Smoking Tobacco: Never Assessed Sex and Gender Information Value Date Recorded Sex Assigned at Not on file Legal Sex Male 3:59 AM SLOPE HOIST OPERATOR Gender Identity Not on file Sexual Orientation Not on file documented as of this encounter Plan of Treatment Not on file documented as of this encounter Procedures Procedure Name Priority Date/Time Associated Diagnosis Comments PROCEDURE - RESULT 08/24/2018 12 :00 AM SLOPE HOIST OPERATOR documented in this encounter Results * PROCEDURE - RESULT (08/24/2018 12:00 AM SLOPE HOIST OPERATOR) Narrative 08/24/2018 12:00 AM SLOPE HOIST OPERATOR Ordered by an unspecified provider. Historical Provider Final Res ult documented in this encounter Visit Diagnoses Not on filedocumented in this encounter Care Teams Public Welfare Director Relationship Specialty Start Date End Date Mk Esposito MD [address] [place] [address] PCP - General 08/28/18 documented as of this encounter
--- OUTSIDE RECORDS SUMMARY | 2025-07-04 20:22 | XMS_ITS | Data Portability ---
Author Organization [facility], [employer] Address [address] [place] [address] Assessment Encounter Date Assessment Date Assessment LastModified by Organization Details LastModified Time 04/18/2024 04/18/2024 Recommends healthy nutrition, including a diet rich in fruits and vegetables, minimizing simple carbohydrates, salt, and saturated fats. Encouraged regular cardiovascular exercise such as walking at least 30 minutes daily, 5 times per week. Not available 04/18/2024 18:54:08 09/05/2024 09/05/2024 Recommends healthy nutrition, including a diet rich in fruits and vegetables, minimizing simple carbohydrates, salt, and saturated fats. Encouraged regular cardiovascular exercise such as walking at least 30 minutes daily, 5 times per week. Not available 09/05/2024 19:29:05 03/13/2025 03/13/2025 Recommends healthy nutrition, including a diet rich in fruits and vegetables, minimizing simple carbohydrates, salt, and saturated fats. Encouraged regular cardiovascular exercise such as walking at least 30 minutes daily, 5 times per week. Not available 03/13/2025 19:27:12 04/12/2025 04/12/2025 Recommends healthy nutrition, including a [...] Lab HbA1c (hemoglob in A1c), blood 2024 [email or web address], [address], [place], [address], 04/19/2025 08:15:29 lipid panel, serum 2024 [facility], [address], [place], [address], 04/19/2025 08:15:28 CMP, serum or plasma 2024 [facility], [address], [place], [address], 04/19/2025 08:15:29 PSA, serum or plasma 2024 [email or web address], [address], [place], [address], 04/19/2025 08:15:29 microalbu min/creat inine, mass ratio, urine 2024 [email or web address], [address], [place], [address], 04/19/2025 08:15:28 lipid panel, serum [address] [email or web address], [address], [place], [address], 03/20/2025 08:17:06 CMP, serum or plasma [address] [email or web address], [address], [place], [address], 03/20/2025 08:17:06 HbA1c (hemoglob in A1c), blood [address] [facility], [address], [place], [address], 03/20/2025 08:17:06 PSA, serum or plasma [address], [address], [place], [address], 03/20/2025 08:17:06 CBC w/ auto diff [address], [address], [place], [address], 03/20/2025 08:17:06 microalbu min/creat inine, mass ratio, urine [address], [address], [place], [address], 03/20/2025 08:17:06 lipid panel, serum 2024 025 [facility], [address], [place], [address], 09/12/2024 08:15:37 CMP, serum or plasma 2024 025 [facility], [address], [place], [address], 09/12/2024 08:15:37 HbA1c (hemoglob in A1c), blood 2024 025 [email or web address], [address], [place], [address], 09/12/2024 08:15:37 microalbu min/creat inine, mass ratio, urine 2024 025 [email or web address], [address], [place], [address], 09/12/2024 08:15:37 microalbu min/creat inine, mass ratio, urine 2023 024 [email or web address] Not available 04/25/2024 09:14:21 lipid panel, serum 2023 024 [email or web address] [facility], [address], [place], [address], 04/25/2024 09:14:21 CBC w/ auto diff 2023 024 [facility], [address], [place], [address], 04/25/2024 09:14:21 CMP, serum or plasma 2023 024 [facility], [address], [place], [address], 04/25/2024 09:14:21 HIV 1 + 2, meaningfu l use set 2023 0[address] [facility], [address] [place] [address], [place], [address], 04/18/2024 19:32:33 Referral podiatris t referral 2024 025 CLARKE Rowell DPM, [address], [place], [address], 04/12/2025 18:15:31 Procedures None recorded. Surgeries None recorded. Imaging US, axilla 2024 025 [email or web address] [facility] ([facility]), [address], [place], [address], 03/20/2025 08:16:58 electroca rdiogram 2024 025 [facility], [facility], [address] , [address], [place], [address], 09/05/2024 20:17:04 Medication Orders Nexlizet 180 mg-10 mg tablet 2024 025 [id number], [address], [place], [id number], 04/12/2025 18:09:22 sildenafi l 50 mg tablet 2024 025 Not available 04/12/2025 18:08:55 sildenafi l 50 mg tablet 2024 025 [email or web address] Not available 03/13/2025 19:43:05 omeprazol e 20 mg capsule,d elayed release 2024 025 [facility] #[id number], [address], [place], [id number], 03/13/2025 19:41:04 sildenafi l 50 mg tablet 2024 025 [email or web address] Not available 09/05/2024 19:47:03 omeprazol e 20 mg capsule,d elayed release 2024 025 [facility] #68158, [address], [place], [id number], 09/05/2024 19:44:53 omeprazol e 20 mg capsule,d elayed release 2023 024 [facility] #[id number], [address], [place], [id number], 04/18/2024 19:31:57 triamtere ne 37.5 mg-hydroc hlorothia zide 25 mg capsule 2023 024 [facility] #31134, [address], [place], [id number], 04/18/2024 19:31:57 Patient TargetsNo targets recorded. Patient Instructions Encounter Date Encounter Id Patient Instructions Last Modified By Organization Details Last Modified Time 04/18/2024 [id number] advised to lose weight Not available 04/18/2024 19:31:51 09/05/2024 [id number] heart-healthy diet: care instructions [email or web address] Not available 09/05/2024 19:44:48 insomnia: care instructions Not available 09/05/2024 19:44:48 advised to lose weight Not available 09/05/2024 19:44:48 03/13/2025 [id number] heart-healthy diet: care instructions Not available 03/13/2025 19:40:45 insomnia: care instructions Not available 03/13/2025 19:40:45 advised to lose weight Not available 03/13/2025 19:40:45 04/12/2025 [id number] heart-healthy diet: care instructions Not available 04/12/2025 18:08:55 insomnia: care instructions Not available 04/12/2025 18:08:55 advised to lose weight Not available 04/12/2025 18:08:55 Discussed and explained advance directives such as standard forms to the . Face to face discussion lasted for a duration of ___ minutes. 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 Referring Physician: Jeferson Aldana, Internal Medicine, Encounter Date: 04/12/2025 Results Created Date Observation Date Name Description Value Unit Range Abnormal Flag Note LastModifiedBy Organization Detail LastModifiedTime 05/11/20 24 05/11/2024 CBC WITH AUTO- DIFFE RENTI AL WBC 5.3 10*3/ uL 3.4-10 .8 Not Available [facility] [address] [facility] [address], [place], [address], 05/13/2024 09:18:42 05/11/20 24 05/11/2024 CBC WITH AUTO- DIFFE RENTI AL RBC 4.64 10*6/ uL 4.20-5 .80 Not Available [facility] [address] [facility] [address], [place], [address], 05/13/2024 09:18:42 05/11/20 24 05/11/2024 CBC WITH AUTO- DIFFE RENTI AL HGB 14.3 g/dL 12.6-1 7.7 Not Available [facility] [address], [place], [address], 05/13/2024 09:18:42 05/11/20 24 05/11/2024 CBC WITH AUTO- DIFFE RENTI AL HCT 42.0 % 37.5-5 1.0 Not Available [facility] [address], [place], [address], 05/13/2024 09:18:42 05/11/20 24 05/11/2024 CBC WITH AUTO- DIFFE RENTI AL MCV 91 fL 79-97 Not Available [facility] [address] [facility] [address] [address], [place], [address], 05/13/2024 09:18:42 05/11/20 24 05/11/2024 CBC WITH AUTO- DIFFE RENTI AL MCH 30.8 pg 26.6-3 3.0 Not Available [facility] [address] [facility] [address], [place], [address], 05/13/2024 09:18:42 05/11/20 24 05/11/2024 CBC WITH AUTO- DIFFE RENTI AL MCHC 34.0 g/dL 31.5-3 5.7 Not Available [facility] [address], [place], [address], 05/13/2024 09:18:42 05/11/20 24 05/11/2024 CBC WITH AUTO- DIFFE RENTI AL RDW 12.6 % 11.5-1 4.5 Not Available [facility] [address], [place], [address], 05/13/2024 09:18:42 05/11/20 24 05/11/2024 CBC WITH AUTO- DIFFE RENTI AL platelets 213 10*3/ uL 150-40 0 Not Available [facility] [address], [place], [address], 05/13/2024 09:18:42 05/11/20 24 05/11/2024 CBC WITH AUTO- DIFFE RENTI AL MPV 10 fL 9-13 Not Available [facility] [address] [facility] [address], [place], [address], 05/13/2024 09:18:42 05/11/20 24 05/11/2024 CBC WITH AUTO- DIFFE RENTI AL neutrophils 45.6 % 40.0-7 4.0 Not Available [facility] [address], [place], [address], 05/13/2024 09:18:42 05/11/20 24 05/11/2024 CBC WITH AUTO- DIFFE RENTI AL absolute neutrophils 2.43 10*3/ uL 1.40-7 .00 Not Available [facility] [address], [place], [address], 05/13/2024 09:18:42 05/11/20 24 05/11/2024 CBC WITH AUTO- DIFFE RENTI AL lymphocytes 45.5 % 14.0-4 6.0 Not Available [facility] [address], [place], [address], 05/13/2024 09:18:42 05/11/20 24 05/11/2024 CBC WITH AUTO- DIFFE RENTI AL absolute lymphocytes 2.42 10*3/ uL 0.70-3 .10 Not Available [facility] [address], [place], [address], 05/13/2024 09:18:42 05/11/20 24 05/11/2024 CBC WITH AUTO- DIFFE RENTI AL monocytes 7.5 % 4.0-12 .0 Not Available [facility] [address], [place], [address], 05/13/2024 09:18:42 05/11/20 24 05/11/2024 CBC WITH AUTO- DIFFE RENTI AL absolute monocytes 0.40 10*3/ uL 0.10-0 .90 Not Available [facility] [address], [place], [address], 05/13/2024 09:18:42 05/11/20 24 05/11/2024 CBC WITH AUTO- DIFFE RENTI AL eosinophils 0.8 % 0.0-5. 0 Not Available [facility] [address], [place], [address], 05/13/2024 09:18:42 05/11/20 24 05/11/2024 CBC WITH AUTO- DIFFE RENTI AL absolute eosinophils 0.04 10*3/ uL 0.00-0 .40 Not Available [facility] [address], [place], [address], 05/13/2024 09:18:42 05/11/20 24 05/11/2024 CBC WITH AUTO- DIFFE RENTI AL basophils 0.4 % 0.0-3. 0 Not Available [facility] [address], [place], [address], 05/13/2024 09:18:42 05/11/20 24 05/11/2024 CBC WITH AUTO- DIFFE RENTI AL absolute basophils 0.02 10*3/ uL 0.00-0 .20 Not Available [facility] [address], [place], [address], 05/13/2024 09:18:42 05/11/20 24 05/11/2024 CBC WITH AUTO- DIFFE RENTI AL imm. gran. 0.2 % 0.0-2. 0 Not Available [facility] [address] [facility] [address], [place], [address], 05/13/2024 09:18:42 05/11/20 24 05/11/2024 CBC WITH AUTO- DIFFE RENTI AL abs. imm. gran. 0.01 10*3/ uL 0.00-0 .10 Not Available [facility] [address] [facility] [address], [place], [address], 05/13/2024 09:18:42 05/11/20 24 05/11/2024 COMPR EHENS PATEL METAB OLIC PANEL sodium 141 mmol/ L 134-14 4 Not Available [facility] [address] [facility] [address], [place], [address], 05/13/2024 09:18:43 05/11/20 24 05/11/2024 COMPR EHENS PATEL METAB OLIC PANEL potassium 4.1 mmol/ L 3.5-5. 2 Not Available [facility] [address] [facility] [address], [place], [address], 05/13/2024 09:18:43 05/11/20 24 05/11/2024 COMPR EHENS PATEL METAB OLIC PANEL chloride 101 mmol/ L 98-107 Not Available [facility] [address], [place], [address], 05/13/2024 09:18:43 05/11/20 24 05/11/2024 COMPR EHENS PATEL METAB OLIC PANEL carbon dioxide (co2) 24.0 mmol/ L 18.0-2 9.0 Not Available [facility] [address] [facility] [address], [place], [address], 05/13/2024 09:18:43 05/11/20 24 05/11/2024 COMPR EHENS PATEL METAB OLIC PANEL glucose 105 mg/dL 65-99 high Daniel l Fasti n - 99 mg/dL Impai red Fasti n - 125 mg/dL Diagn ostic of Diabe tessa: => 126 mg/dL Ameri can Diabe tessa Ass[facility] iatio n, 2007 Not Available [facility] [address] [facility] [address], [place], [address], 05/13/2024 09:18:43 05/11/20 24 05/11/2024 COMPR EHENS PATEL METAB OLIC PANEL urea nitrogen (BUN) 22 mg/dL 6-20 high Not Available [facility] [address], [place], [address], 05/13/2024 09:18:43 05/11/20 24 05/11/2024 COMPR EHENS PATEL METAB OLIC PANEL creatinine 1.20 mg/dL 0.76-1 .27 Not Available [facility] [address], [place], [address], 05/13/2024 09:18:43 05/11/20 24 05/11/2024 COMPR EHENS PATEL METAB OLIC PANEL eGFR 74 mL/mi nute/ 1.73_ m2 >59 MDRD Study Equat ion: The calcu lated GFR is NOT appli cable for pedia tric (< 18 years old) and > 70 year old patie nts and patie nts that are NOT of stead y state . Not Available [facility] [address] [facility] [address], [place], [address], 05/13/2024 09:18:43 05/11/20 24 05/11/2024 COMPR EHENS PATEL METAB OLIC PANEL calcium 9.9 mg/dL 8.7-10 .2 Not Available [facility] [address] [facility] [address], [place], [address], 05/13/2024 09:18:43 05/11/20 24 05/11/2024 COMPR EHENS PATEL METAB OLIC PANEL protein, total 7.5 gm/dL 6.4-8. 3 Not Available [facility] [address] [facility] [address], [place], [address], 05/13/2024 09:18:43 05/11/20 24 05/11/2024 COMPR EHENS PATEL METAB OLIC PANEL albumin 4.9 gm/dL 3.5-5. 2 Not Available [facility] [address] [facility] [address], [place], [address], 05/13/2024 09:18:43 05/11/20 24 05/11/2024 COMPR EHENS PATEL METAB OLIC PANEL bilirubin, total 0.20 mg/dL 0.00-1 .20 Not Available [facility] [address] [facility] [address], [place], [address], 05/13/2024 09:18:43 05/11/20 24 05/11/2024 COMPR EHENS PATEL METAB OLIC PANEL alkaline phosphatase (ALP) 57 U/L 39-117 Not Available [facility] [address] [facility], [place], [address], 05/13/2024 09:18:43 05/11/20 24 05/11/2024 COMPR EHENS PATEL METAB OLIC PANEL aspartate aminotransfe rase (AST) 28 U/L 0-40 Not Available [facility] [address], [place], [address], 05/13/2024 09:18:43 05/11/20 24 05/11/2024 COMPR EHENS PATEL METAB OLIC PANEL alanine aminotransfe rase (ALT) 40 U/L 0-41 Not Available [facility] [address] [facility] [address], [place], [address], 05/13/2024 09:18:43 05/11/20 24 05/11/2024 COMPR EHENS PATEL METAB OLIC PANEL A/G ratio (calculated) 1.9 ratio 1.0-2. 7 Not Available [facility] [address] [facility] [address], [place], [address], 05/13/2024 09:18:43 05/11/20 24 05/11/2024 COMPR EHENS PATEL METAB OLIC PANEL globulin (calculated) 2.6 gm/dL 1.5-3. 8 Not Available [facility] [address] [facility] [address], [place], [address], 05/13/2024 09:18:43 05/11/20 24 05/11/2024 COMPR EHENS PATEL METAB OLIC PANEL BUN/creatini ne ratio (calculated) 18.3 ratio 8.0-20 .0 Not Available [facility] [address] [address], [place], [address], 05/13/2024 09:18:43 05/11/20 24 05/11/2024 COMPR EHENS PATEL METAB OLIC PANEL serum hemolysis index NORMAL index normal Not Available [facility] [address], [place], [address], 05/13/2024 09:18:43 05/11/20 24 05/11/2024 LIPID PANEL W/ CALC. LDL cholesterol, total 244 mg/dL 100-19 9 high Not Available [facility] [address] [facility] [address], [place], [address], 05/13/2024 09:18:44 05/11/20 24 05/11/2024 LIPID PANEL W/ CALC. LDL HDL cholesterol 55 mg/dL =>40 Not Available [facility] [address] [facility] [address], [place], [address], 05/13/2024 09:18:44 05/11/20 24 05/11/2024 LIPID PANEL W/ CALC. LDL LDL cholesterol (calculated) 153 mg/dL 0-99 high Not Available [facility] [address] [facility] [address], [place], [address], 05/13/2024 09:18:44 05/11/20 24 05/11/2024 LIPID PANEL W/ CALC. LDL triglyceride s 181 mg/dL 50-149 high Not Available [facility] [address] [facility] [address], [place], [address], 05/13/2024 09:18:44 05/11/20 24 05/11/2024 LIPID PANEL W/ CALC. LDL chol/HDL ratio (calculated) 4.44 ratio 0.00-5 .00 Not Available [facility] [address] [facility] [address], [place], [address], 05/13/2024 09:18:44 05/11/20 24 05/11/2024 LIPID PANEL W/ CALC. LDL VLDL cholesterol (calculated) 36 mg/dL 5-40 Not Available [facility] [address] [facility] [address], [place], [address], 05/13/2024 09:18:44 05/11/20 24 05/11/2024 MICRO ALBUM IN:CR EATIN INE RATIO , RANDO M URINE microalbumin , urine 17.10 mcg/m L not applic able Not Available [facility] [address] [facility] [address], [place], [address], 05/13/2024 09:18:45 05/11/20 24 05/11/2024 MICRO ALBUM IN:CR EATIN INE RATIO , RANDO M URINE creatinine, urine 197.0 mg/dL not applic able Not Available [facility] [address] [facility] [address], [place], [address], 05/13/2024 09:18:45 05/11/20 24 05/11/2024 MICRO ALBUM IN:CR EATIN INE RATIO , RANDO M URINE microalbumin :creatinine ratio, random urine (calculated) 86.8 mg/gm _crea t. Daniel l: 0-29 mg/gm Moder ately incre ased: 30-30 0 mg/gm Sever ly incre ased: >300 mg/gm Not Available [facility] [address] [facility] [address], [place], [address], 05/13/2024 09:18:45 05/11/20 24 05/13/2024 HIV P24 ANTIG EN/AN TIBOD Y WITH REFLE X TO CONFI RMATI ON HIV Ab/P24 Ag screen NON REACTI VE non reacti ve normal HIV-1 /HIV- 2 antib odies and HIV-1 p24 antig en were NOT detec reinaldo. There is no labor atory evide nce of HIV infec tion. HIV Negat patel Not Available [facility] [address], [place], [address], 05/13/2024 09:18:45 03/28/2003/28/2025 HEMOG LOBIN A1C hemoglobin A1C 6.1 % 4.8-5. 6 high DANIEL L RANGE BASED ON ANAND COL 2 (DCCT /NGSP ): Non-D iabet ic: < 5.7% Pre-D iabet es: 5.7 - 6.4% Diabe tessa: => 6.5% GLYCE ARTEM CONTR OL: < 7.0% Not Available [facility] [address] [facility] [address], [place], [address], 03/29/2025 15:26:37 03/28/20 25 03/28/2025 HEMOG LOBIN A1C estimated average glucose 128 Not Available [facility] [address], [place], [address], 03/29/2025 15:26:37 03/28/20 25 03/28/2025 COMPR EHENS PATEL METAB OLIC PANEL sodium 141 mmol/ L 134-14 4 Not Available [facility] [address] [facility] [address], [place], [address], 03/29/2025 15:26:37 03/28/20 25 03/28/2025 COMPR EHENS PATEL METAB OLIC PANEL potassium 4.2 mmol/ L 3.5-5. 2 Not Available [facility] [address], [place], [address], 03/29/2025 15:26:37 03/28/20 25 03/28/2025 COMPR EHENS PATEL METAB OLIC PANEL chloride 103 mmol/ L 98-107 Not Available [facility] [address] [facility] [address] [address], [place], [address], 03/29/2025 15:26:37 03/28/20 25 03/28/2025 COMPR EHENS PATEL METAB OLIC PANEL carbon dioxide (co2) 25.0 mmol/ L 18.0-2 9.0 Not Available [facility] [address] [facility] [address], [place], [address], 03/29/2025 15:26:37 03/28/20 25 03/28/2025 COMPR EHENS PATEL METAB OLIC PANEL glucose 98 mg/dL 65-99 Daniel l Fasti n - 99 mg/dL Impai red Fasti n - 125 mg/dL Diagn ostic of Diabe tessa: => 126 mg/dL Ameri can Diabe tessa Ass[employer] iatio n, 2007 Not Available [facility] [address] [facility] [address] [address], [place], [address], 03/29/2025 15:26:37 03/28/20 25 03/28/2025 COMPR EHENS PATEL METAB OLIC PANEL urea nitrogen (BUN) 15 mg/dL 6-20 Not Available [facility] [address] [facility] [address], [place], [address], 03/29/2025 15:26:37 03/28/20 25 03/28/2025 COMPR EHENS PATEL METAB OLIC PANEL creatinine 1.05 mg/dL 0.76-1 .27 Not Available [facility] [address] [facility] [address], [place], [address], 03/29/2025 15:26:37 03/28/20 25 03/28/2025 COMPR EHENS PATEL METAB OLIC PANEL eGFR 86 mL/mi nute/ 1.73_ m2 >59 MDRD Study Equat ion: The calcu lated GFR is NOT appli cable for pedia tric (< 18 years old) and > 70 year old patie nts and patie nts that are NOT of stead y state . Not Available [facility] [address] [facility] [address], [place], [address], 03/29/2025 15:26:37 03/28/20 25 03/28/2025 COMPR EHENS PATEL METAB OLIC PANEL calcium 9.4 mg/dL 8.7-10 .2 Not Available [facility] [address], [place], [address], 03/29/2025 15:26:37 03/28/20 25 03/28/2025 COMPR EHENS PATEL METAB OLIC PANEL protein, total 7.1 gm/dL 6.4-8. 3 Not Available [facility] [address], [place], [address], 03/29/2025 15:26:37 03/28/20 25 03/28/2025 COMPR EHENS PATEL METAB OLIC PANEL albumin 4.7 gm/dL 3.5-5. 2 Not Available [facility] [address] [facility] [address], [place], [address], 03/29/2025 15:26:37 03/28/20 25 03/28/2025 COMPR EHENS PATEL METAB OLIC PANEL bilirubin, total 0.40 mg/dL 0.00-1 .20 Not Available [facility] [address], [place], [address], 03/29/2025 15:26:37 03/28/20 25 03/28/2025 COMPR EHENS PATEL METAB OLIC PANEL alkaline phosphatase (ALP) 54 U/L 39-117 Not Available [facility] [address], [place], [address], 03/29/2025 15:26:37 03/28/20 25 03/28/2025 COMPR EHENS PATEL METAB OLIC PANEL aspartate aminotransfe rase (AST) 27 U/L 0-[address] [facility] [address], [place], [address], 03/29/2025 15:26:37 03/28/20 25 03/28/2025 COMPR EHENS PATEL METAB OLIC PANEL alanine aminotransfe rase (ALT) 34 U/L 0-41 Not Available [facility] [address] [facility] [address], [place], [address], 03/29/2025 15:26:37 03/28/20 25 03/28/2025 COMPR EHENS PATEL METAB OLIC PANEL A/G ratio (calculated) 2.0 ratio 1.0-2. 7 Not Available [facility] [address], [place], [address], 03/29/2025 15:26:37 03/28/20 25 03/28/2025 COMPR EHENS PATEL METAB OLIC PANEL globulin (calculated) 2.4 gm/dL 1.5-3. 8 Not Available [facility] [address], [place], [address], 03/29/2025 15:26:37 03/28/20 25 03/28/2025 COMPR EHENS PATEL METAB OLIC PANEL BUN/creatini ne ratio (calculated) 14.3 ratio 8.0-20 .0 Not Available [facility] [address] [address], [place], [address], 03/29/2025 15:26:37 03/28/20 25 03/28/2025 COMPR EHENS PATEL METAB OLIC PANEL serum index hemolysis NORMAL index normal Not Available [facility] [address], [place], [address], 03/29/2025 15:26:37 03/28/20 25 03/28/2025 LIPID PANEL (CHOL ZACH OL TOTAL , TRIGL YCERI HAN, HDL KRISH STERO L, LDL CHOL. cholesterol, total 250 mg/dL 100-19 9 high Not Available [facility] [address], [place], [address], 03/29/2025 15:26:38 03/28/20 25 03/28/2025 LIPID PANEL (CHOL ZACH OL TOTAL , TRIGL YCERI HAN, HDL KRISH STERO L, LDL CHOL. HDL cholesterol 48 mg/dL =>40 Not Available [facility] [address], [place], [address], 03/29/2025 15:26:38 03/28/20 25 03/28/2025 LIPID PANEL (CHOL ZACH OL TOTAL , TRIGL YCERI HAN, HDL KRISH STERO L, LDL CHOL. LDL cholesterol (calculated) 182 mg/dL 0-99 high Not Available [facility] [address], [place], [address], 03/29/2025 15:26:38 03/28/20 25 03/28/2025 LIPID PANEL (CHOL ZACH OL TOTAL , TRIGL YCERI HAN, HDL KRISH STERO L, LDL CHOL. triglyceride s 98 mg/dL 50-149 Not Available [facility] [address], [place], [address], 03/29/2025 15:26:38 03/28/20 25 03/28/2025 LIPID PANEL (CHOL ZACH OL TOTAL , TRIGL YCERI HAN, HDL KRISH STERO L, LDL CHOL. chol/HDL ratio (calculated) 5.21 ratio 0.00-5 .00 high Not Available [facility] [address], [place], [address], 03/29/2025 15:26:38 03/28/20 25 03/28/2025 LIPID PANEL (CHOL ZACH OL TOTAL , TRIGL YCERI HAN, HDL KRISH STERO L, LDL CHOL. VLDL cholesterol (calculated) 20 mg/dL 5-40 Not Available [facility] [address], [place], [address], 03/29/2025 15:26:38 08/13/19 23 08/13/2022 elect kevin forbes am No observ ation record ed. Not Available 2023 19:35:21 09/06/19 25 09/07/2024 elect rocyoli diogr am No observ ation record ed. [address], [place], [address], 03/13/2025 19:43:04 09/06/19 25 09/05/2024 elect rocyoli diogr am No observ ation record ed. [address], [place], [address], 03/13/2025 19:43:04 04/04/20 25 US axill jorden non breas t [facility] [address] [place] [address] Orderi ng Provid er: JEFERSON ALDANA [facility] [place] [address] [facility] [address] [place], [place] [address] Examin ation: US AXILLA RY NON BREAST LT Exam time: 025 8:05 AM Indica tion: AXILLA RY LYMPHA [...] ve lymph nodes. Ordere d By: JEFERSON ALDANA Electr onical ly Signed By: Delmar Santacruz MD on 025 1:49 PM Interp reted By: Delmar Santacruz MD, 025 1:47 PM [facility] 1 [facility], [place], [address], 04/12/2025 18:00:36 06/10/20 25 US gd lymph node BX [facility] [address] [place] [address] Orderi ng Provid er: CORY GARCIA [facility] [place] [address] [facility] [address] [place], [place] [address] Examin ation: Ultras ound guided lymph node biopsy . Access ion: [id number] Exam Date/T fran: 025 7:41 AM Reason For Exam: axilla ry lympha denopa thy Compar yuko: 2024 left axilla ry ultras ound Techni que: Transc utaneo us ultras ound evalua tion of the thyroi d was perfor med for analys is of graysc yandel imagin g charescobar terist ics and guiddana ce for FNA. Findin gs: 3.6 x [...] Ultras ound perfor med for imagin g maury ce of thyroi d biopsy perfor med by Dr. Urmila smith t radiol ogist presen t. ====== ====== ====== ====== ====== ====== ====== = Referr ed By: [facility] Signed By: Boogie beatty MD on 025 5:05 PM Interp reted By: Boogie beatty MD, 025 5:03 PM [facility] 1 [facility], [place], [address], 06/10/2025 18:20:29 Result Notes None recorded. Problems Name Problem SNOMED Code Status Onset Date Resolution Date Notes Provider Name and Address Organization Details Recorded Time Deep venous thrombosis 893720413 Active 2018 venous doppler 02/11/19 Not Available [facility] 2 11:29:27 Deep venous thrombosis 914444551 Active 2018 Not Available [facility] 2 11:29:27 Pulmonary embolism 10448086 Active 2018 Not Available [facility] 2 11:29:27 Low back pain 915934326 Active 2022 MD Aarti Lopez [facility] [address], [facility] [address] , [facility] 3 17:13:51 Problem Notes None recorded. Procedures Surgical History Date Name Laterality Status Provider Name and Address Organization Details Recorded Time 01/14/20 23 Colonoscopy completed MD Aarti Lopez [facility] [address], [facility] [address], [facility] 02/13/2023 11:12:27 Orthopedic Surgery completed MD Aarti Lopez [facility] [address], [facility] [address], [facility] 08/10/2018 10:34:35 Imaging Results None recorded. [...] Not Available Not Available Not Available Fluvirin 8284-2453 45 mcg (15 mcg x 3)/0.5 mL [...] Not Avai lable Vitals Date Recorded Body weight Respiratory rate Body temperature Heart rate Systolic And Diastolic Provider Name and Address Organization Details Last Updated DateTime 3 58147.1 4 g 16 /min 98.2 [degF] 84 /min 138/76 mm[Hg] [facility] 3 16:07:21 Date Recorded Body height Heart rate Respiratory rate Body temperature Body mass index (BMI) Body weight Systolic And Diastolic Provider Name and Address Organization Details Last Updated DateTime 5 172.72 cm 71 /min 16 /min 97.4 [degF] 33 kg/m2 56158.5 4 g 129/83 mm[Hg] [facility] 5 18:36:26 Date Recorded Body height Heart rate Respiratory rate Body temperature Body mass index (BMI) Body weight Systolic And Diastolic Provider Name and Address Organization Details Last Updated DateTime 5 172.72 cm 71 /min 16 /min 97.9 [degF] 32.4 kg/m2 10162.1 7 g 143/83 mm[Hg] [facility] 5 18:39:26 Date Recorded Body height Heart rate Respiratory rate Body temperature Body mass index (BMI) Body weight Systolic And Diastolic Provider Name and Address Organization Details Last Updated DateTime 5 172.72 cm 80 /min 16 /min 95.7 [degF] 31.9 kg/m2 26311.4 g 131/84 mm[Hg] Jeny Gaspar [facility] 5 16:48:17 Date Recorded Heart rate Respiratory rate Body temperature Body height Body mass index (BMI) Body weight Systolic And Diastolic Provider Name and Address Organization Details Last Updated DateTime 4 73 /min 16 /min 97 [degF] 172.72 cm 32.1 kg/m2 88998.9 9 g 154/93 mm[Hg] Jeny Gaspar [facility] 4 18:39:14 Date Recorded Heart rate Systolic And Diastolic Provider Name and Address Organization Details Last Updated DateTime 05/11/2024 74 /min 133/86 mm[Hg] Jeny Gaspar [facility] 05/11/2024 18:49:43 Social History Question Answer Notes LastModified by Organizat ion Details LastModified Time Tobacco Smoking Status Former Smoker GREG KRISTINE [facility] 10/08/2016 15:00:17 What Is Your Level [...] None Information not available 10/08/2016 Marital Status [email or web address] Informatio n not available 08/13/2022 What Was The [...] not available 10/08/2016 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 Information not available 11/07/2020 What is your [...] Details Recorded Time Tdap 9 completed Ratna valenzuela [facility] 02/21/2019 13:43:27 Influenza, split virus, quadrivalent, preservative 9 completed Zachery valenzuela [facility] 11/07/2020 17:00:01 Influenza, split virus, quadrivalent, preservative 7 completed Zachery valenzuela [facility] 11/07/2020 17:00:01 Hep A, adult 6 completed Zachery valenzuela [facility] 11/07/2020 17:00:01 Hep B, unspecified formulation 01/01/201 6 completed Zachery valenzuela [place] [facility] 11/07/2020 17:00:01 Past Encounters Encounter ID Performer Location Encounter Start Date Encounter Closed Date Diagnosis/Indication Diagnosis SNOMED-CT Code Diagnosis ICD10 Code Diagnosis IMO Codes Diagnosis Note [id number] Jeferson Aldana MD [facility] [address] [place] [address] 10/08/2016 14:10:37 10/08/2016 16:12:44 Abdominal pain 17083156 R10.9 (periumbil ical) -- ongoing for about 15 years intermitte ntly; patient reports no trigger factors (? stress); currently asymptomat ic-- Patient was taking famotidine and later given dicyclomin e (from [facility]) for which symptoms did not help.-- counseled on Lactose abstinence and challenge trials. Hyperlipid emia screening 035697749 Z13.220 [id number] Jeferson Aldana MD [facility] [address] [place] [address] 11/10/2016 10:28:07 11/10/2016 12:01:59 Abdominal pain 77194625 R10.9 (periumbil ical) -- ongoing for about 15 years intermitte ntly; patient reports no trigger factors (? stress); currently asymptomat ic-- abdominal CT on 10/17/16 was unrevealin g -- Patient took famotidine and dicyclomin e (from [facility]) but without response.- - counseled on Lactose abstinence and challenge trials. Hyperlipid emia screening 372267220 Z13.220 Adult [facility] [place] th examination 394782252 Z00.00 [id number] Jeferson Aldana MD [facility] [address] [place] [address] 03/19/2017 15:56:51 03/19/2017 17:42:01 Abdominal pain 30825642 R10.9 (periumbil ical) -- ongoing for about 15 years intermitte ntly; patient reports no trigger factors (? stress); currently asymptomat ic-- abdominal CT on 10/17/16 was unrevealin g-- counseled on Lactose abstinence but pt reports no response. Hyperlipid emia screening 755998076 Z13.220 Body mass index 30+ - obesity 328460395 Z68.39 -- Advised weight loss; pt gained 8 # since his last visit-- pt's BMI today is 31.9 (ideal is between 20-25) Active or passive immunization 941694540 Z23 Right flank pain 3863510 09 R10.9 (right upper flank) -- check D-dimer [id number] Jeferson Aldana MD [facility] [address] [place] [address] 04/26/2018 11:58:04 04/26/2018 13:42:11 Pain in left knee 8716279339 49146 M25.562 [id number] Jeferson Aldana MD [facility] [employer] [facility], [address] [place] [address] 05/13/2018 09:08:57 05/13/2018 10:22:30 Deep venous thrombosis of lower extremity 473935426 I82.409 -- pt counseled to avoid all NSAIDs as he is on Xarelto-- pt also counseled on avoidance of dangerous/ high risk activities due to his increased risk for bleeding. Gastroesop hageal reflux disease without esophagitis 834590348 K21.9 [id number] Jeferson Aldana MD [facility] [employer] [facility] [address] [place] [address] 08/10/2018 09:26:46 08/10/2018 10:56:39 Deep venous thrombosis of lower extremity 198572571 I82.409 -- pt counseled to avoid all NSAIDs as he is on Xarelto-- reports he has been not missed a single dose of Xarelto since May 2018-- advised that he can stop the Xarelto now Gastroesop hageal reflux disease without esophagitis 866234349 K21.9 -- asyptomati c Periumbilical pain 63878 3005 R10.33 (h/o pancreatit is) -- Patient has appointmen t with gastroente rologist Dr. Degroot on 08/24/18 for egd Body mass index 30+ - obesity 414768167 Z68.32 -- Advised weight loss; pt gained 2 # since his last visit-- pt's BMI today is 32.2 (ideal is between 20-25) Active or passive immunization 676065683 Z23 -- Patient reports he had received a Flu shot at work around March 2018 Elevated blood-pressure reading without diagnosis of hypertension 209522941 R03.0 Pain in left knee 795079 0730 26333 M25.562 (workman's comp) -- cleared for surgery [id number] [facility]HELLE [facility] [email or web address] [address] [facility] [address] [place] [address] 02/01/2019 12:06:43 02/01/2019 12:49:14 Elevated blood-pressure reading without diagnosis of hypertension 210267812 R03.0 08/2018 EKG Deep venou s thrombosis of lower extremity 584501390 I82.409 following left knee injury in 04/2018 -completed Xarelto x 3 months - Gastroesop hageal reflux disease without esophagitis 779898425 K21.9 -- asyptomati c Body mass index 30+ - obesity 063255029 Z68.32 -- Advised weight loss; pt gained 2 # since his last visit-- pt's BMI today is 32.2 (ideal is between 20-25) Active or passive immunization 326534379 Z23 -- Patient reports he had received a Flu shot at work around March 2018 Tear of me niscus of knee 470584698 S83.207A 08/17/18 - arthroscop y with lateral meniscecto my - Complete t ear, knee, anterior cruciate ligament 917186026 S83.512A with repair on 01/26/19 Benign pro static hyperplasia without outflow obstruction 084024802 N40.[address] abd / pelvis 09/15/18PSA 1.8 Polyp of colon 62536485 K63.5 08/2017 -tubular adenoma - on pathrepeat in 3 years Gastritis 7394297 K29.70 erosive gastritis - noted on endoscopy 08/2017omep razole continued - Swelling of lower leg 44 6088704 R22.42 recent ACL reconstruc tion surgery 01/26/19rep orts of increase in pain with standing (knee to foot) and swelling - [id number] Jeferson Aldana MD [employer] [address] [place] [address] 02/16/2019 09:28:18 02/16/2019 11:09:17 Pulmonary embolism 86177581 I26.99 -- dx'd 02/07/2019 recent arthroscop ic surgery.-- with previous h/o DVT 05/04/2018 after arthorscop ic meniscus repair.-- Need life long anticoagul ation-- recheck lab(s) 2 weeks from 02/16/19 Deep venou s thrombosis of lower extremity 365293259 I82.412 (previous repeat venous dopperl on LLE showed resolution of LLE DVT on 04/28/18) -- new DVT on Left peroneal vein on venous doppler 02/07/2019 -- pt counseled to avoid all NSAIDs as he is on Xarelto-- 2nd DVT-- will be on life long anticoagul ant but will also refer pt to Hematologi st for further eval. Complete t ear, knee, anterior cruciate ligament 184941368 S83.512A with repair on 01/26/19 Body mass index 30+ - obesity 636351383 Z68.32 -- Advised weight loss; pt cannot be weighed today-- pt's BMI was 32.2 (ideal is between 20-25) Active or passive immunization 383682756 Z23 -- Patient reports he had received a Flu shot at work around March 2018 Benign pro static hyperplasia without outflow obstruction 568376849 N40.[address] abd / pelvis 09/15/18PSA 1.8 on 09/30/2018 .-- recheck PSA on 04/05/2019 Polyp of colon 08783998 K63.5 (tubular adenoma - on path) -- Gastroente rologist Dr Degroot wants pt to repeat colonoscop y 3 years from 08/25/2018 Gastritis 7829483 K29.70 erosive gastritis - noted on endoscopy 08/2017omep razole continued - Benign ess ential hypertension 3269279 I10 -- recheck lab(s) 2 weeks from 02/16/19 Hyperglycemia 20491193 R 73.9 (glucose 129 inpatient on 02/07/19) -- recheck lab(s) 2 weeks from 02/16/19 [id number] Jeferson Aldana MD [employer] [address] [facility] ,[address] [address] 10/31/2019 14:16:24 10/31/2019 15:25:59 Pulmonary embolism 99932988 I26.99 -- dx'd 02/07/2019 recent arthroscop ic surgery.-- with previous h/o DVT 05/04/2018 after arthorscop ic meniscus repair.-- Need life long anticoagul ation-- recheck lab(s) 2 weeks from 02/16/19 Deep venou s thrombosis of lower extremity 192570385 I82.412 (previous repeat venous dopperl on LLE showed resolution of LLE DVT on 04/28/18) -- new DVT on Left peroneal vein on venous doppler 02/07/2019 -- pt counseled to avoid all NSAIDs as he is on Xarelto-- 2nd DVT-- will be on life long anticoagul ant-- pt saw Hematologi st Dr Elias Caceres on 07/25/19 & his next appt w/ Dr Caceres will be 11/14/19 Benign ess ential hypertension 3418059 I10 -- recheck lab(s) 2 weeks from 02/16/19 Hyperglycemia 53432720 R 73.9 (glucose 129 inpatient on 02/07/19) -- recheck lab(s) Gastritis 8716620 K29.70 erosive gastritis - noted on endoscopy 08/2017omep razole continued - Body mass index 30+ - obesity 330539015 Z68.32 -- Advised weight loss; Pt refused weight at last visit Polyp of colon 28893724 K63.5 (tubular adenoma - on path) -- Gastroente rologist Dr Degroot wants pt to repeat colonoscop y 3 years from 08/25/2018 Benign pro static hyperplasia without outflow obstruction 222555513 N40.[address] abd / pelvis 09/15/18-- PSA 1.8 on 09/30/2018 .-- ordered PSA level to be done on 04/05/2019 (but not done); will re-order Active or passive immunization 398231567 Z23 -- Patient reports he had received a Flu shot at work around March 2018 [id number] Jeferson Aldana MD [email or web address] [address] [facility] [address] [address] 02/24/2020 12:23:59 02/27/2020 18:48:14 Adult health examination 394570534 Z00.00 Benign ess ential hypertension 8761221 I10 -- recheck lab(s) 2 weeks from 02/16/19 Pulmonary embolism 49807 003 I26.99 -- dx'd 02/07/2019 recent arthroscop ic surgery.-- completed Xarelto therapy in October 2019 Gastroesop hageal reflux disease without esophagitis 571209300 K21.9 -- asyptomati c Body mass index 30+ - obesity 505420952 Z68.31 -- pt is very muscular-- pt's BMI today is 31.8 (ideal is between 20-25) Hepatitis C screening 41 7954881 Z11.59 Hyperglycemia 31982276 R 73.9 -- check A1c 3-4 weeks from 01/17/20 Primary er ectile dysfunction 798987522 N52.9 [id number] Jeferson Aldana MD [facility], [address] [place] [address] 11/07/2020 16:57:51 11/07/2020 18:43:14 Low back pain 000600792 M54.5 (R>>L lower flank) Neck pain 15064833 M54.2 [id number] Jeferson Aldana MD [facility], [address] [place] [address] 06/04/2022 11:35:18 06/04/2022 12:55:24 Adult health examination 516983958 Z00.00 Low back pain 600556512 M54.51 (R>>L lower flank) -- seeing Spine surgeon Dr Dominic Cruz (Fax # ) Neck pain 97483291 M54.2 -- no pain in the last 6 weeks Essential hypertension 13016771 I10 Gastroesop hageal reflux disease without esophagitis 290364523 K21.9 -- asymptomat ic Body mass index 30+ - obesity 964308203 Z68.39 -- pt is very muscular but will advise weight loss anyway-- pt's BMI today is 31.9 (ideal is between 20-25) Screening for malignant neoplasm of colon 134660416 Z12.11 [id number] Jeferson Aldana MD [employer], [place] [address] [place] [address] 08/13/2022 14:57:21 08/13/2022 17:16:37 Low back pain 085422151 M54.51 (R>>L lower flank) -- seeing Spine surgeon Dr Dominic Cruz (Fax # [phone])-- cleared for surgery medically. [id number] Jeferson Aldana MD [employer], [address] [place] [address] 04/18/2024 18:25:37 04/18/2024 19:38:11 Adult health examination 410744493 Z00.00 Low back pain 358863189 M54.51 (R>>L lower flank) -- per pt on 04/18/24, he underwent procedure by Spine surgeon Dr Dominic Cruz (Fax # )-- had cage placed on L5-S1 via anterior approach done 08/20/22 and doing well without pain since surgery Essential hypertension 48136828 I10 -- will need to keep BP controlled ; need to restrict daily Sodium intake to between 1-2 grams of Sodium intake per 24 hours-- examples of salty foods include: smoked salmon, canned green beans, chicken noodle soups, TV dinners, salted nuts, chips, kraus, Pepperoni, Parmesan cheese, Ramen noodles, Sauerkraut , dill pickles, canned tomato sauce, etc.-- EKG done 08/13/22 Gastroesop hageal reflux disease without esophagitis 381087774 K21.9 -- asymptomat ic as long as he takes Omeprazole Body mass index 30+ - obesity 938730158 Z68.39 -- pt is very muscular but will advise weight loss anyway-- pt's BMI today is 31.9 (ideal is between 20-25) Screening for malignant neoplasm of colon 626463173 Z12.11 -- gastroente rologist Dr Svetlana Degroot recommends repeating colonoscop y 5 years from 01/13/23 History of deep vein thrombosis 683933078 Z86.718 (twice) once after meniscus surgery on 08/17/18, & second time after ACL reconstruc tion on 01/26/19 w/ LLE DVT going to his Rt lung) -- both times after left knee surgery Hepatitis C screening 41 2632213 Z11.59 -- tested negative for Hepatitis C on 06/10/22 HIV screening 743582526 Z11.4 CDC recommends that everyone between the ages of 13 and 64 get tested for HIV at least once as part of routine health care. Active or passive immunization 115461315 Z23 -- Patient does not want Flu shot [id number] Jeferson Aldana MD [facility] [employer], [place] [address] [facility] ,[address] [address] 09/05/2024 18:18:10 09/05/2024 19:47:40 Essential hypertension 53121870 I10 -- will need to keep BP controlled ; need to restrict daily Sodium intake to between 1-2 grams of Sodium intake per 24 hours-- examples of salty foods include: smoked salmon, canned green beans, chicken noodle soups, TV dinners, salted nuts, chips, kraus, Pepperoni, Parmesan cheese, Ramen noodles, Sauerkraut , dill pickles, canned tomato sauce, etc.-- EKG done Gastroesop hageal reflux disease without esophagitis 342142683 K21.9 -- asymptomat ic as long as he takes Omeprazole Low back pain 156587406 M54.51 (R>>L lower flank) -- per pt on 04/18/24, he underwent procedure by Spine surgeon Dr Dominic Cruz (Fax # )-- had cage placed on L5-S1 via anterior approach done 08/20/22 and doing well without pain since surgery History of deep vein thrombosis 028106534 Z86.718 (twice) once after meniscus surgery on 08/17/18, & second time after ACL reconstruc tion on 01/26/19 w/ LLE DVT going to his Rt lung) -- both times after left knee surgery Body mass index 30+ - obesity 987922631 Z68.33 -- advised weight loss; pt gained 6 # since his last visit-- pt's BMI today is 33 (ideal is between 20-25) Hepatitis C screening 41 8279320 Z11.59 -- tested negative for Hepatitis C on 06/10/22 HIV screening 984308392 Z11.4 -- tested negative for HIV on 05/11/24 Active or passive immunization 302972944 Z23 -- Patient does not want Flu shot Screening for malignant neoplasm of colon 521700507 Z12.11 -- gastroente rologist Dr Svetlana Degroot recommends repeating colonoscop y 5 years from 01/13/23 Hyperlipidemia 95013737 E78.5 Hyperlipid emia; pt will need to:-- [...] & fat free milk is fine). Hyperglycemia 13331008 R 73.9 (glucose of 105 on 05/11/24) v Primary er ectile dysfunction 725830359 N52.9 Many patients found that Viagra can [...] help if you have sudden vision loss. Chronic insomnia 8215689 04 F51.04 Recommende d dose for Melatonin [...] devices); then re-attempt sleeping in bed again. [id number] Jeferson Aldana MD [employer] [address] [facility] [address] [place] [address] 03/13/2025 18:17:18 03/13/2025 19:43:15 Essential hypertension 70439897 I10 -- will need to keep BP controlled ; need to restrict daily Sodium intake to between 1-2 grams of Sodium intake per 24 hours-- examples of salty foods include: smoked salmon, canned green beans, chicken noodle soups, TV dinners, salted nuts, chips, kraus, Pepperoni, Parmesan cheese, Ramen noodles, Sauerkraut , dill pickles, canned tomato sauce, etc.-- EKG done 09/05/24 Hyperlipidemia 33158464 E78.5 Hyperlipid emia; pt will need to:-- [...] & fat free milk is fine). Hyperglycemia 36797633 R 73.9 (glucose of 105 on 05/11/24) Gastroesop hageal reflux disease without esophagitis [id number] K21.9 -- asymptomat ic as long as he takes Omeprazole Low back pain 107120255 M54.51 (R>>L lower flank) -- per pt on 04/18/24, he underwent procedure by Spine surgeon Dr Dominic Cruz (Fax # [phone])-- had cage placed on L5-S1 via anterior approach done 08/20/22 and doing well without pain since surgery History of deep vein thrombosis 096586260 Z86.718 (twice) once after meniscus surgery on 08/17/18, & second time after ACL reconstruc tion on 01/26/19 w/ LLE DVT going to his Rt lung) -- both times after left knee surgery Chronic insomnia 1780582 04 F51.04 Recommende d dose for Melatonin [...] in bed again. Primary er ectile dysfunction 374036035 N52.9 Many patients found that Viagra can [...] sudden vision loss. 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 295948038 E66.811 E66.09 Z68.32 79505851 -- advised weight loss; pt lost 4 # since his last visit-- pt's BMI today is 32.4 (ideal is between 20-25) Axillary lymphadenopathy 023488426 R59.0 283499 (left side since covid vaccine 2020) Screening for malignant neoplasm of prostate 657278186 Z12.5 936023 [id number] Jeferson Aldana MD [facility], [facility] [address] [facility] [address] [place] [address] 04/12/2025 16:40:40 04/12/2025 18:10:14 Axillary lymphadenopathy 158830417 R59.0 044162 (left side since covid vaccine 2020) -- Axillary LN evident on u/s on 04/04/25-- referred pt to [facility] for further evaluation . Essential hypertension 66683638 I10 -- will need to keep BP controlled ; need to restrict daily Sodium intake to between 1-2 grams of Sodium intake per 24 hours-- examples of salty foods include: smoked salmon, canned green beans, chicken noodle soups, TV dinners, salted nuts, chips, kraus, Pepperoni, Parmesan cheese, Ramen noodles, Sauerkraut , dill pickles, canned tomato sauce, etc.-- EKG done 09/05/24 Hyperlipidemia 33297028 E78.5 Hyperlipid emia; pt will need to:-- [...] med; Gastroesop hageal reflux disease without esophagitis 593276992 K21.9 -- asymptomat ic even though he is no longer on Omeprazole Low back pain 433468147 M54.51 (R>>L lower flank) -- per pt on 04/18/24, he underwent procedure by Spine surgeon Dr Dominic Cruz [phone] (Fax # [phone])-- had cage placed on L5-S1 via anterior approach done 08/20/22 and doing well without pain since surgery History of deep vein thrombosis 989401305 Z86.718 (twice) once after meniscus surgery on 08/17/18, & second time after ACL reconstruc tion on 01/26/19 w/ LLE DVT going to his Rt lung) -- both times after left knee surgery Chronic insomnia 0630915 04 F51.04 Recommende d dose for Melatonin [...] in bed again. Primary er ectile dysfunction 901234239 N52.9 Many patients found that Viagra can [...] loss. Obesity ca used by energy imbalance 928594897 E66.811 E66.09 Z68.31 28953313 -- advised weight loss; pt lost 3 # since his last visit-- pt's BMI today is 3.9 (ideal is between 20-25) Hepatitis C screening 41 2644080 Z11.59 -- tested negative for Hepatitis C on 06/10/22 HIV screening 379372556 Z11.4 -- tested negative for HIV on 05/11/24 Active or passive immunization 256347358 Z23 -- Patient does not want Flu shot Screening for malignant neoplasm of colon 365634248 Z12.11 -- gastroente rologist Dr Svetlana Degroot recommends repeating colonoscop y 5 years from 01/13/23 Screening for malignant neoplasm of prostate 475292453 Z12.5 809076 -- check lab within 3 weeks from 04/12/25 Well adult 693032215 Z00 .00 96126022 Pain in right foot 83404 05746 33340 M79.671 280196 (h/o plantar fascitis and right heel spur) Impaired g lucose tolerance 2565789 R73.02 88295 -- A1c f 6.1 (03/28/25) Health Concerns Section Related Observation LastModified by Organization Detai ls LastModified Time None Recorded Concern Status LastModified by Organization Details LastModified Time None Recorded Advance Directives Directive None Recorded Payers Insurance Date Sequence Insurance Name Policy Number Policy Fountain Covered Member ID Fountain Member ID Guarantor Name 03/13/2025 1 [facility] [id number] Aman Brooke [id number] Aman Brooke 03/13/2025 1 [facility] [id number] Aman Brooke [id number] Aman Brooke 03/13/2025 [employer] (PERSONAL INJURY) Aman Brooke [id number] Aman Brooke 03/13/2025 1 [employer] [id number] Aman Brooke [id number] Aman Brooke 03/13/2025 1 [facility] [id number] Aman Brooke [id number] Khurramrius Brooke 05/01/2025 PAYMENT PLAN Aman Brooke 04/17/2025 1 [facility] [id number] Aman Brooke [id number] Khurramrius Brooke 03/13/2025 1 [facility] [id number] Fontarius Kacey Brooke [id number] Aman Brooke 03/13/2025 2 [place] [id number] Aman Brooke [id number] Aman Brooke 03/25/2024 1 [employer] [id number] Macrina Brooke [id number] Aman Brooke Notes Date Note Type Note Provider Name and Address Organization Details Recorded Time 08/13/2022 text/html Pt comes in for medical clearance for Lumbar spine surgery by Dr Dominic Cruz on 08/20/22 & 08/22/22Pt has no f/c, sinus sx, sorethroat, cough, urinary sx, new skin rash, tiredness or any bleeding problems/easy bruising. Pt feels well and has no c/o. Pt has no new sx and no increasing sx. Patient denies any jaw or neck discomfort, left arm pain/left arm discomfort, chest discomfort/pain, diaphoresis, breathing symptoms/chest tightness, indigestion sx, n/v, weakness or fatigue. Jeferson Aldana MD [address] [facility] [address], [place], [address], [facility] 08/13/2022 17:14:43 04/18/2024 text/html Pt comes in for f/u HTN, GERD, LBP, and weight monitoring. Pt also here for annual PE. Pt feels well and has no c/o. Pt has no new sx and no increasing sx. Patient denies any jaw or neck discomfort, left arm pain/left arm discomfort, chest discomfort/pain, diaphoresis, breathing symptoms/chest tightness, indigestion sx, n/v, any angina equivalent symptoms, etc. MD Shahida Lopez2 [facility] [address], [place], [address], [facility] 04/18/2024 19:35:34 09/05/2024 text/html Pt comes in for f/u of HTN, HLD, ^glucose, GERD (no sx), ED, and weight monitoring. Pt feels well and has no c/o. Pt has no new sx and no increasing sx. Patient denies any jaw or neck discomfort, left arm pain/left arm discomfort, chest discomfort/pain, diaphoresis, breathing symptoms/chest tightness, indigestion sx, n/v, any angina equivalent symptoms, etc. MD Shahida Lopez2 [facility], [place], [address], [facility] 09/05/2024 19:46:08 03/13/2025 text/html Pt comes in for f/u of HTN, HLD, ^glucose, GERD and weight. Pt also bumps under left armpit that comes & goes since covid vaccination in 2020. Pt feels well and has no c/o. Pt has no new sx and no increasing sx. Patient denies any jaw or neck discomfort, left arm pain/left arm discomfort, chest discomfort/pain, diaphoresis, breathing symptoms/chest tightness, indigestion sx, n/v, any angina equivalent symptoms, etc. MD Shahida Lopez2 [facility] [address], [place], [address], [facility] 03/13/2025 19:43:11 04/12/2025 text/html Pt comes in for stress [...] angina equivalent symptoms, etc. Jeferson Aldana MD [address] [facility] [address], [place], [address], [facility] 04/12/2025 18:10:35
--- OUTSIDE RECORDS SUMMARY | 2025-07-04 20:22 | XMS_ITS | Clinical Summary ---
Author Organization [facility] Address [address] [place] [address] Phone Care Team Providers Care Tool Chaser Name Role Phone Mk Esposito MD Primary Care Provider [phone] Allergies No known active allergies Medications omeprazole (PRILOSEC) 20 MG CAPSULE DELAYED RELEASE Take 20 mg by mouth daily. 08/23/2018 Active triamterene-hydr ochlorothiazide (DYAZIDE) 37.5-25 MG Capsule Take 1 Cap by mouth daily. 0 02/16/2019 Active Cholecalciferol (VITAMIN D) 2000 UNIT Tablet Take 2,000 Units by mouth daily. Active ascorbic acid (ASCORBIC ACID) 500 MG Tablet Take 500 mg by mouth daily. Active [place]-3 Fatty Acids (FISH OIL) 500 MG Capsule Take 1,000 mg by mouth daily. Active zinc gluconate 50 MG Tablet Take 1 Tab by mouth daily. Active Probiotic Capsule Take 1 Cap by mouth daily. Active Multiple Vitamins-Mineral s (MULTIVITAMIN PO) Take 1 Tab by mouth daily. Active magnesium oxide (MAG-OX) 400 MG Tablet Take 400 mg by mouth daily. Active rivaroxaban (XARELTO) 20 MG Tablet Take 1 Tab by mouth daily. 30 Tab 2 09/21/2019 Active Active Problems Problem Noted Date Diagnosed Date Deep vein thrombosis (DVT) of lower extremity Family History Medical History Relation Name Comments Hypertension Maternal Grandmother Hypertension Sister Relation Name Status Comments Maternal Grandmother Sister Social History Tobacco Use Types Packs/Day Years Used Date Smoking Tobacco: Never Smokeless Tobacco: Never Tobacco Cessation:Counseling Given: No Alcohol Use Standard Drinks/Week Comments Yes 2 (1 standard drink = 0.6 oz pur e alcohol) every 3-4 days AUDIT-C Answer Date Recorded Frequency of Alcohol Consumption 2-3 times a wee k 03/09/2019 Average Number of Drinks 1 or [...] Sign Reading Time Taken Comments Blood Pressure 140/80 11/14/2019 1:29 PM CDT Pulse 76 11/14/2019 1:29 PM CDT Temperature 37 C (98.6 F) 11/14/2019 1:29 PM CDT Respiratory Rate 18 11/14/2019 1:29 PM CDT Oxygen Saturation 96% 11/14/2019 1:29 PM CDT Inhaled Oxygen Concentration - - Weight 98.9 kg (218 lb) 11/14/2019 1:29 PM CDT Height 172.7 cm (5' 8) 11/14/2019 1:29 PM CDT Body Mass Index 33.15 11/14/2019 1:29 PM CDT Plan of Treatment Health Maintenance Due Date Last Done Comments Hepatitis C Virus (HCV) Screening 1975 Cologuard 12/11/2019 Colonoscopy 12/11/2019 Colorectal Cancer Screening 12/11/2019 Immunochemical Fecal Occult Blood 12/11/2019 Pneumococcal Immunization (50+ years) (1 of 1 - PCV) 2024 Zoster Immunization (1 of 2) 2024 Influenza Immunization (#1) 03/06/202504/06, 03/25/2018, 03/26/2017, Additional history exists SARS-COV-2 Immunization (2024- season) 2025 10/31/2020, 10/11/2020 Respiratory Syncytial Virus (RSV) Immunization (Adult) (1 - 1-dose 75+ series) 2049 Hepatitis B Immunization Completed 016, 12/25/2015, 09/10/2015 DTaP/Tdap/Td Immunization Discontinued 2018, 03/10/1986, 03/22/1981, Additional history exists TdaP Immunization Completed 08/11/2018 Human Papillomavirus (HPV) Immunization (No Doses Required) Completed Meningococcal Immunization (ACWY) Aged Out No longer eligible based on patient's age to complete this topic Rotavirus Immunization Aged Out No lo nger eligible based on patient's age to complete this topic Insurance [employer]IC Care Teams Tool Chaser Relationship Specialty Start Date End Date Mk Esposito MD PCP - General Internal Medicine 02/16/19
--- OUTSIDE RECORDS SUMMARY | 2025-07-04 20:22 | XMS_ITS | Clinical Summary ---
Author Organization [facility] Address [address] [place] [address] Care Team Providers Care Ui Designer Name Role Phone Mk Esposito MD Primary Care Provider [phone] Allergies No known active allergies Medications omeprazole 20 MG capsule Take 20 mg by mouth daily. Active [place]-3 Fatty Acids (FISH OIL) 500 MG capsule Take 1,000 mg by mouth daily. Active Cholecalciferol (VITAMIN D) 2000 units Tab Take 2,000 Units by mouth daily. Active vitamin C 500 MG tablet Take 500 mg by mouth daily. Active zinc gluconate 50 MG Tab Take 1 tablet by mouth daily. Active probiotic capsule Take 1 capsule by mouth 2 (two) times daily. Active butalbital-acet aminophen-caffe ine (FIORICET) 50-300-40 MG capsule Take 1 capsule by mouth every 4 (four) hours as needed for Pain or Headaches. 20 capsule 05/23/2022 Active Encounters Date Type Department Care Team Description 06/09/2025 7:30 AM PROCESS ENG - 06/09/2025 11:59 PM [facility] Hospital Encounter [facility] Ultrasound [address] [facility] [address] [place] [address] Gurinder Kearns MD Discharge Disposition: Home or Self Care (Routine Discharge) 06/09/2025 Travel from Last 3 Months Immunizations Immunization Administration Dates Next Due PFIZER COVID-19 (ORIGINAL FO RMULATION, PURPLE CAP) mRNA, LNP-S, PF, 30 MCG/0.3 ML DOSE 10/31/2020,10/11/2020 Family History Medical History Relation Comments Hypertension Sister Relation Status Comments Sister Social History Tobacco Use Types Packs/Day Years Used Date Smoking Tobacco: Never Smokeless Tobacco: Never Tobacco Cessation:Counseling Given: Not Answered Alcohol Use Standard Drinks/Week Comments Yes 0 (1 standard drink = 0.6 oz pur e alcohol) 6-7 times weekly beer or wine AUDIT-C Answer Date Recorded Frequency of Alcohol Consumption Never 01/13/2019 Average Number of Drinks Not on file 019 Frequency of Binge Drinking Not on file 01/03 Sex and Gender Information Value Date Recorded Sex Assigned at Male 03/27/2025 7:57 AM CDT Legal Sex Male 7:00 PM CDT Gender Identity Not on file Sexual Orientation Not on file Last Filed Vital Signs Vital Sign Reading Time Taken Comments Blood Pressure 134/87 05/23/2022 10:00 AM PROCESS ENG Pulse 60 05/23/2022 10:00 AM PROCESS ENG Temperature 36.5 C (97.7 F) 05/23/2022 8:13 AM PROCESS ENG Respiratory Rate 13 05/23/2022 10:00 AM PROCESS ENG Oxygen Saturation 98% 05/23/2022 10:00 AM PROCESS ENG Inhaled Oxygen Concentration - - Weight 93.4 kg (206 lb) 05/23/2022 8:13 AM PROCESS ENG Height 172.7 cm (5' 8) 05/23/2022 8:13 AM PROCESS ENG Body Mass Index 31.32 05/23/2022 8:13 AM PROCESS ENG Plan of Treatment Health Maintenance Due Date Last Done Comments Colorectal Cancer Screening Colonoscopy (10 Years) 1974 Annual Physical 1977 Hepatitis C 1992 Pneumococcal Vaccine: 50+ Years (1 of 1 - PCV) 2024 Zoster Vaccines (1 of 2) 2024 COVID-19 Vaccine (3 - 2024- season) 2025 10/31/2020, 10/11/2020 Influenza Adult (#1) 2025 04/27/2019, 03/25/2018, 03/26/2017, Additional history exists DTaP, Tdap and Td Vaccines (6 - Td or Tdap) 08/11/2028 08/11/2018, 03/10/1986, 03/10/1986, Additional history exists Hepatitis A Vaccines Completed 04/01/2016, 09/10/2015, 07/06/2015 Hepatitis B Vaccines Completed 04/01/2016, 12/25/2015, 09/10/2015, Additional history exists Meningococcal B Vaccine Aged Out No l onger eligible based on patient's age to complete this topic Meningococcal Vaccine Aged Out No deanna nataly eligible based on patient's age to complete this topic RSV Immunizations Under 20 Months Aged Out No longer eligible based on patient's age to complete this topic Medical Devices Implanted Type Area Business Operations Consultant Device Identifier Shelf Expiration Date Model / Serial / Lot Tibialis Tendon- Anterior Fz Implanted:Qty: 1 on 01/26/2019 by Dominic Toth MD at [facility] Tissue Left: Knee 12/21/2021 [id number] / [id number] / Description:PRODUCT CODE 81B 001 DONOR # [id number] Expressbraid Graft Manipulation Implanted:Qty: 1 on 01/26/2019 by Dominic Toth MD at [facility] Left: Knee 2023 [id number] / / [id number] Description:REF [id number] Expressbraid Graft Manipulation Implanted:Qty: 1 on 01/26/2019 by Dominic Toth MD at [facility] Left: Knee 09/08/2022 [id number] / / [id number] Description:REF [id number] Standard Ziploop Implant Kit Implanted:Qty: 1 on 01/26/2019 by Dominic Toth MD at [facility] Left: Knee [id number] 08/03/2023 [id number] / / [id number] Description:REF [id number] Interference Screw For Soft Tissue Graft Implanted:Qty: 1 on 01/26/2019 by Dominic Toth MD at [facility] Left: Knee 06/05/2020 [id number] / / [id number] Description:REF [id number] Procedures Procedure Name Priority Date/Time Associated Diagnosis Comments US GD LYMPH NODE BX Routine 06/09/2025 8 :23 AM PROCESS ENG Axillary lymphadenopathy MISCELLANEOUS LAB TEST Routine 06/09/2025 8:00 AM PROCESS ENG PATHOLOGY Routine 06/09/2025 12:00 AM PROCESS ENG Axillary lymphadenopathy from Last 3 Months Results * US GD LYMPH NODE BX (06/09/2025 8:23 AM PROCESS ENG) Anatomical Region Laterality Modality Undefined Ultrasound 06/10/2025 5:03 PM PROCESS ENG Impressions 06/10/2025 5:05 PM PROCESS ENG IMPRESSION: 1. Ultrasound performed for imaging guidance of thyroid biopsy performed by Dr. Kearns without radiologist present. Referred By: GURINDER KEARNS Interpreted By: Molina Shoemaker MD, 06/10/2025 5:03 PM Narrative 06/10/2025 5:05 PM PROCESS ENG [address] [address] Examination: Ultrasound guided lymph node biopsy. Exam Date/Time: 06/09/2025 7:41 AM Reason For Exam: axillary lymphadenopathy Comparison: 03/27/2025 left axillary ultrasound Technique: Transcutaneous ultrasound evaluation of the thyroid was performed for analysis of grayscale imaging characteristics and guidance for FNA. Findings: 3.6 x 3.2 x 0.7 cm reniform shaped mass with prominent fatty hilum in the left axilla noted. Cortex measures up to 3.8 mm in maximal thickness. Subsequent images demonstrate needle placement within the lymph node for biopsy. A final image labeled vision clip is provided Procedure Note Molina Shoemaker MD - 06/10/[address] [address] Examination: Ultrasound guided lymph node biopsy. Exam Date/Time: 06/09/2025 7:41 AM Reason For Exam: axillary lymphadenopathy Comparison: 03/27/2025 left axillary ultrasound Technique: Transcutaneous ultrasound evaluation of the thyroid wasperformed for analysis of grayscale imaging characteristics and guidancefor FNA. Findings: 3.6 x 3.2 x 0.7 cm reniform shaped mass with prominent fattyhilum in the left axilla noted. Cortex measures up to 3.8 mm in maximalthickness. Subsequent images demonstrate needle placement within thelymph node for biopsy. A final image labeled vision clip is provided IMPRESSION: 1. Ultrasound performed for imaging guidance of thyroid biopsy performedby Dr. Kearns without radiologist present. Referred By: GURINDER KEARNS Interpreted By: Molina Shoemaker MD, 06/10/2025 5:03 PM us Gurinder Kearns MD ULTRASOUND Final Result * MISCELLANEOUS LAB TEST (06/09/2025 8:00 AM PROCESS ENG) TEST NAME: Leukemia/Lymphoma EvaluationTEST [id number] 06/09/2025 3:29 PM PROCESS ENG [facility] SPECIMEN TYPE LT AXILLARY LYMPH NODE CORE REFRIG 06/09/2025 3:29 PM PROCESS ENG [facility] TEST RESULT: Flexitest 1 06/13/2025 10:42 AM PROCESS ENG [email or web address] GELA KRAFT Comment: Flexitest 1 CLINICAL INFORMATION: NOT PROVIDED SPECIMEN TYPE: Left axillary LN VIABILITY: 7 % INTERPRETATION: PAUCICELLULAR LIMITED STUDY (SEE COMMENT) The few lymphocytes in sample include apparently polytypic B cells and immunophenotypically normal CD4+ and CD8+ T cells. COMMENT: The low numbers of cells in sample preclude full marker panel, which will limit interpretation. Correlation with morphologic features is essential to assess adequacy of sampling. Flow Cytometry reviewed by Elizabeth Hansen M.D. SAMPLE DESCRIPTION: The sample consists of a few small lymphocytes. GATING STRATEGY: Lymphocytes were selected for analysis based on CD45 staining intensity, forward scatter and side scatter. [place] B - Lymphocytes Marker Percentage CD2 50 CD3 49 CD4 45 CD5 44 CD7 43 CD8 4 CD10 2 CD11c QNS CD13 QNS CD19 43 CD19+CD5+ 2 CD20 34 CD23 QNS CD33 QNS CD34 QNS CD38 8 CD45 100 CD56+CD3- 0 CD64 QNS CD117 QNS HLA_DR QNS [place] CD19+ 17 Lambda CD19+ 14 K/L Ratio 1.21 This test was developed and its analytical performance characteristics have been determined by [facility] [place], [place]. It has not been cleared or approved by the U.S. Food and Drug Administration. This assay has been validated pursuant to the CLIA regulations and is used for clinical purposes. NUMBER OF MARKERS: 14 Test Performed by [facility], [facility], [address] [place] [address] Andrews Redding M.D., Ph.D., Director of Laboratories , CLIA [id number] 06/09/2025 8:00 AM PROCESS ENG us Gurinder Kearns MD LABORATORY Final Result [employer] , [place] [phone] [facility] [address] [place] [address], [place] [phone] * Pathology (06/09/2025 12:00 AM PROCESS ENG) PATHOLOGY [facility] Department of Laboratory Medicine [address] [place] [address] , extension [phone] Pathology Report Surgical Pathology Report Name: ZULMA BROOKEBLANK Kacey Specimen #: [id number] Age: 612/10/1975 (Age: 49) Location: [facility] Sex: M Procedure Date: 06/09/2025 [facility] #: [id number] Date Received: 06/09/2025 Date Reported: 06/14/2025 Provider: GURINDER KEARNS MD Source: Lymph node, left axillary, biopsy Clinical History: Enlarged left axillary lymph node. FINAL DIAGNOSIS: Lymph node, left axilla, core biopsy: - Benign lymph node tissue with few pigmented macrophages. IC: MIRELA Diagnosis Comment: Immunohistochemical stains are performed to characterize the lymph node tissue. CD3 and CD20 highlight a mixture of T cells and B cells, respectively. CD5 shows a staining pattern consistent with T-cell expression. CD23 highlights focal follicular dendritic cell meshworks. BCL6 highlights few cells. CD10 and BCL-1 are essentially negative. BCL2 highlights a subset of the lymphocytes. AE1/AE3 is negative for metastatic carcinoma. Flow cytometric analysis [facility] performed and [facility] ([place], [place]). It showed a paucicellular limited specimen with polytypic B cells and immunophenotypically normal CD4 and CD8 positive T cells. Due to the low number of cells in the specimen, only a limited panel was performed. Please see separate report in Epic for further details. Gross Description: Received in formalin, labeled with a patient label and as left axilla lymph node, are 3 friable yellow-white soft tissue cores, each 0.1 cm in diameter, that range from 0.5-1.3 cm in length. The specimen is entirely submitted in cassette 1. Also received is 1 cytology slide. All immunohistochemical and histochemical tests were developed by and performed at [facility], [address] [place] [address]. All tests reported here have not been cleared or approved by the U.S. Food and Drug Administration (FDA). This laboratory is regulated under CLIA as qualified to perform high-complexity testing. These tests are used for clinical purposes. They should not be regarded as investigational or for research. Positive and negative controls show appropriate reactivity. Gross examination (when applicable) was performed at [facility], [address] [place] [address]. This case was interpreted and signed out at [facility], [address] [place], [place] [address] [address]. Intraoperative Diagnosis: Rapid onsite assessment Lymph node, left axilla, core biopsy: - Pass 1: Adequate. - Approximately 6 cores in formalin. - Approximately 2 cores in RPMI. Rapid on-site evaluation performed by AMELIE Olivera (ASCP) at [facility], [address] [place] [address]. Electronically Signed Out Rajendra Fair M.D. [facility] TISSUE 06/09/2025 06/09/2025 1:2 7 PM PROCESS ENG Comment:Lymph node, left axi llary, biopsy us Gurinder Kearns MD PATHOLOGY/CYTOLOGY ORDERABLES Final Result [facility] [address] [place] [address], [id number] from Last 3 Months Insurance [employer] [facility] Care Teams Ui Designer Relationship Specialty Start Date End Date Mk Esposito MD [address] [facility] [address] [place] [address] PCP - General INTERNAL MEDICINE 05/13/18
--- NOTE | 2025-07-05 01:13 | PC.NURSE ---
no answer for vital signs
== END 2025-07-05 03:31 | disposition left against medical advice (07) ==
LOC: ANHED 07-05 03:30
PROVIDERS: PCP Internal Medicine
DX: R10.A1 Flank pain, right side (principal)
CPT/HCPCS: 99199